=== PATIENT | female | born 1960 | race Caucasian/White ===

== ENCOUNTER → 2017-05-18 10:24 | Outpatient (CLI) | payer OTHER, SELFPAY ==
--- NOTE | 2017-05-18 10:26 | HPBI_ITS ---
MAMMOGRAPHY - BILATERAL SCREENING REASON FOR EXAM: Female, 57 years old. Routine annual screening examination. PERTINENT HISTORY: Grandmother with breast cancer. Remote right excisional breast biopsy. TECHNIQUE: Digital bilateral breast angel (3D mammographic acquisition) in the CC and MLO projections. 2-D mediolateral oblique (MLO) and craniocaudad (CC) views of both breasts were obtained. CAD: Full Field Digital Mammography with Computer Added Detection was performed. COMPARISON: Comparison is made with prior study dated February 26, 2016 and October 31, 2012. FINDINGS: Breast Composition: The breasts are heterogeneously dense, which may obscure small masses. There are no dominant masses or suspicious calcifications. No other significant abnormalities are identified. There has been no significant change since the prior study. HPBI/SCREENING MAMM (CAD), BILAT IMPRESSION: Stable bilateral screening mammogram. Yearly follow-up mammogram recommended. (A) ASSESSMENT CATEGORY: BIRADS Category 1: Negative. A letter regarding these results will be sent to the patient by the facility within 30 days. Approximately 10% of breast cancers are not detected by mammography. A normal mammogram should not delay biopsy of a clinically suspicious abnormality. [id number] Electronically Signed: Joshua Arguello MD at 13:13 EST Tel [phone], Service support ,
== END ==
PROVIDERS: Family Provider Family Medicine; PCP Family Medicine; Visit Provider Family Medicine
DX: Z12.31 Encounter for screening mammogram for malignant neoplasm of breast (principal)
CPT/HCPCS: 77063; 77067

== ENCOUNTER → 2017-12-29 17:28 | Outpatient (CLI) | payer SELFPAY, OTHER ==
--- NOTE | 2017-12-29 18:09 | MRI_ITS ---
STUDY: MRI BRAIN WITH AND WITHOUT CONTRAST REASON FOR EXAM: Female, 57 years old. Cardiomegaly. TECHNIQUE: Standardized multiplanar fat and water weighted pulse sequences were obtained. 8 ml of Gadavist contrast material was administered intravenously for the contrast portion of the examination. COMPARISON: None. FINDINGS: Normal size of the ventricles and extra-axial spaces for the patient's age. Normal white matter tracts of the supratentorial brain. Normal bilateral basal ganglia. Normal thalami. There is no extra-axial fluid accumulation. Normal flow voids within the major intracranial circulation suggesting patency by spin echo criteria. Normal venous enhancement. There is no enhancing intra-axial or extra-axial abnormality. Normal sella turcica, pituitary gland, infundibular stalk, optic chiasm and hypothalamus. Normal tectal plate and pineal gland. Normal midbrain, ignacio and medulla. Normal cerebellum. Normal basal cisterns. Normal bilateral temporal bones. Normal bilateral internal auditory canals. No demonstrated orbital abnormality, within the constraints of a routine brain study. Normal visualized paranasal sinuses. Normal calvarium and skull base. Normal visualized soft tissue structures. Normal visualized upper cervical spine. IMPRESSION: Normal unenhanced and enhanced MRI of the brain. Electronically Signed: Luis Diaz MD at 4:48 EDT Tel , Service support , STUDY: MRI ORBITS WITH AND WITHOUT CONTRAST REASON FOR EXAM: Female, 57 years old. visual disturbances rt eye TECHNIQUE: Standardized fat and water weighted pulse sequences were obtained in all 3 orthogonal planes, pre-and post contrast administration. ml of contrast material was administered intravenously for the contrast portion of the examination. COMPARISON: None. FINDINGS: Normal bilateral globes. Normal bilateral optic nerve sheath complexes and optic nerves. Normal bilateral intraconal and extraconal spaces. Normal bilateral extraocular muscles. Normal optic chiasm and post-chiasmatic tracts. Normal sella turcica, pituitary gland, infundibular stalk, and hypothalamus. Normal bilateral cavernous sinuses. Normal tectal plate and pineal gland. Normal flow voids within the major intracranial circulation suggesting patency by spin echo criteria. Normal size of the ventricles and extra-axial spaces for the patient's age. Normal white matter tracts of the supratentorial brain. Normal bilateral basal ganglia. Normal thalami. There is no extra-axial fluid accumulation. Normal midbrain, ignacio and medulla. Normal cerebellum. Normal basal cisterns. MRI/Brain W/WO Contrast IMPRESSION: Normal enhanced and unenhanced MRI of the orbits. Electronically Signed: Luis Diaz MD at 4:49 EDT Tel , Service support ,
== END ==
PROVIDERS: Family Provider Family Medicine; PCP Family Medicine; Visit Provider Ophthalmology
DX: R51 Headache (principal); H53.40 Unspecified visual field defects
CPT/HCPCS: 70553; A9585

== ENCOUNTER → 2018-04-18 14:38 | Outpatient (CLI) | payer OTHER, SELFPAY ==
[2018-04-18 15:43] LABS: Absolute Lymphocyte Count 1.58 X10^3/ul (0.83-4.51); Absolute Neutrophil Count 5.4 X10^3/uL (2.0-7.7); Basophil# 0.02 X10^3/uL; Basophil% 0.3 % (0-1); Eosinophil# 0.09 X10^3/uL; Eosinophils% 1.2 % (0-5); Hematocrit 42.9 % (37-47); Hemoglobin 14.3 g/dl (12.0-15.0); Lymphocyte # 1.58 X10^3/ul (4.0); Lymphocyte % 20.7 % (19-41); Mean Corp Hgb Conc 33.3 g/gl (32-36); Mean Corpuscular Hgb 29.6 pg (27.0-32.0); Mean Corpuscular Volume 88.8 fL (81-99); Mean Platelet Vol. 9.5 fl (6.2-12.0); Monocyte# 0.51 X10^3/uL; Monocyte% 6.7 % (0-10); Neutrophil # 5.41 X10^3/uL (2.7-7.7); Neutrophil % 70.8 % (47-70); Platelet Count 192 K/mm3 (150-450); RBC Distribution Width CV 12.7 % (11.6-14.6); RBC Distribution Width SD 40.9 fl (35.1-43.9); Red Blood Count 4.83 M/mm3 (4.2-5.4); White Blood Count 7.6 K/mm3 (4.4-11.0)
[2018-04-18 15:50] LABS: POSITIVE COUNT NO; POSITIVE DIFFERENTIAL NO; POSITIVE MORPHOLOGY NO
[2018-04-18 16:20] LABS: T3 Total - Triiodothyronine 0.95 ng/mL (0.6-1.81)
[2018-04-18 16:26] LABS: ALB/GLOB Ratio 1.2 RATIO (0.9-2.4); AST(SGOT) 12 U/L (15-37); Alanine Aminotransfer ALT/SGPT 24 U/L (13-56); Albumin, Serum 3.8 g/dL (3.2-5.0); Alkaline Phosphatase 76 U/L (45-117); Anion Gap 9 (5-15); BUN 12 mg/dL (7-18); BUN/Creat Ratio 17.1 RATIO (10-20); Calcium,Total 8.7 mg/dL (8.5-10.1); Chloride 103 mmol/L (98-107); EST Glomerular Filtration Rate 91 mL/min (>60); Est Glom Filt Rate - Afr Amer 111 mL/min (>60); Ferritin 120 ng/mL (8-252); Globulin 3.3 g/dL (2.2-4.2); Glucose 75 mg/dL (74-106); Potassium 3.6 mmol/L (3.5-5.1); Protein, Total 7.1 g/dL (6.4-8.2); Sodium Level 140 mmol/L (136-145); T4 Free Direct 0.83 ng/dL (0.76-1.46); Thyroid Stim Hormone (TSH) 2.07 uIU/mL (0.358-3.74)
[2018-04-20 11:32] LABS: Thyroid Peroxidase AB 11 IU/mL (0-34)
[2018-04-21 09:42] LABS: ANTINUCLEAR ANTIBODIES DIRECT Negative (Negative)
== END ==
PROVIDERS: Family Provider Family Medicine; PCP Family Medicine; Referring Provider Dermatology Pediatric Dermatology; Visit Provider Dermatology Pediatric Dermatology
DX: L64.8 Other androgenic alopecia (principal)
CPT/HCPCS: 36415; 80053; 82728; 84439; 84443; 84480; 85025; 86038; 86376

== ENCOUNTER → 2018-12-15 | Outpatient (CLI) | payer OTHER, SELFPAY ==
[2018-08-01 17:02] VITALS: BMI 30.6
[2018-12-15 15:26] LABS: Anion Gap 6 (5-15); BUN 16 mg/dL (7-18); Calcium,Total 8.7 mg/dL (8.5-10.1); Chloride 106 mmol/L (98-107); Cholesterol 168 mg/dL (200); Creatinine, Serum 0.76 mg/dL (0.55-1.02); EST Glomerular Filtration Rate 83 mL/min (>60); Est Glom Filt Rate - Afr Amer 100 mL/min (>60); Glucose 93 mg/dL (74-106); High Density Lipoprotein 55 mg/dL; Potassium 3.6 mmol/L (3.5-5.1); Sodium Level 142 mmol/L (136-145); Triglycerides 154 mg/dL; Very Low Density Lipoprotein 31 mg/dL (5-40)
[2018-12-15 15:31] LABS: Vitamin D,25 Hydroxy 36.3 ng/mL (29.95-100.01)
== END | disposition home or self-care (01) ==
LOC: MTLAB 13:10
PROVIDERS: Family Provider Family Medicine; PCP Family Medicine; Referring Provider Family Medicine; Visit Provider Family Medicine
DX: Z00.00 Encounter for general adult medical examination without abnormal findings (principal); E55.9 Vitamin D deficiency, unspecified
CPT/HCPCS: 36415; 80048; 80061; 82306

== ENCOUNTER 2019-01-06 10:30 | Outpatient (RCR) | payer OTHER, SELFPAY ==
[2018-08-01 17:02] VITALS: BMI 30.6
--- NOTE | 2018-12-16 09:14 | HP.PTEVAL_ITS ---
Patient's Visit Information ADAM PELAYO is a 58 year old F referred to Physical Therapy by Preston Miranda MD with a diagnosis of sinus Tarsitis of the Right foot.. Date of Evaluation: 12/16/18 Physical Therapist: CHELSY García - Visit Plan Frequency: 2x /Week Duration: 3 Weeks Plan: 2X/ week for 3 weeks for R ankle Stretching, foam rolling, strengthening, gait training, balance and proprioception with HEP - Subjective Findings: Pt has pain in the R ankle. 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 She was not having any problems for awhile and then started again for about 6 months and now 6-8 weeks ago it gives out when she is walking. Current symptoms: it is throbbing constantly, giving out, stabbing pain with sitting. Stairs: she feels the pain on stairs and has to be careful because of the giving out. She will go back in 4 weeks for a cortizone injection. He gave her a brace to wear 24-7 because of the giving out. - Pain R ankle pain Pain Intensity (Out of 10): 3 Pain Intensity Range: 6 - Objective Gait: Walks with slightly decrease stance time on the R foot. A lot of eversion on the R ankle with gait. R ankle girth measurements: medial to lateral 25.6cm, 51.2cm, 22.2 cm. L ankle 25, 50.5, 23. R ankle AROM:-6 degrees from neutral, 55 degrees PF, 6 degrees EV and 23 degrees Inversion. 5 DF degrees, 60 PF degrees, 23 INV degrees, and 6 degrees EVersion. R ankle MMT: 4- /5 DF and PF. EV 4-/5 and INV 4-/5. L ankle MMT 4/5 throught all 4 planes. R ankle SLS for 15 seconds and L ankle SLS x 23 seconds - Goals Goal 1:: I HEP Goal Time Frame: 2-4 Weeks Goal 2:: Increase R ankle DF to 5 degrees DF Goal Time Frame: 2-4 Weeks Goal 3:: Increase R ankle strength to 4/5 all 4 planes Goal Time Frame: 2-4 Weeks Goal 4:: Be able to sLB X 1 min while catching a ball without the leg giving out Goal Time Frame: 2-4 Weeks - Rehabilitation Potential Rehabilitation Potential: Good - Anticipated Interventions Patient/Client Instruction: Educate patient on: Condition, Plan of Care For the Purpose of:: To decrease pain, To decrease swelling/inflammation, To increase ROM, To improve nutrient delivery to tissue, To improve muscle performance and motor function, To improve ability to perform ADL's, To increase tolerance to activity/condition/position, To improve performance and independence with ADL's, To decrease level of supervision to perform tasks, To improve ability of physical actions for home/community/work/leisure, To improve gait and locomotor functions, To improve health of tissue, To decrease soft tissue restriction, To increase flexibility/ROM, To improve balance Therapeutic Exercise to Include: Strength training, Balance training, Flexibilty training, Gait and locomotor training, Neuromotor development, Passive ROM, Active ROM For the Purpose of:: To decrease pain, To decrease swelling/inflammation, To increase ROM, To improve nutrient delivery to tissue, To improve muscle performance and motor function, To improve ability to perform ADL's, To increase tolerance to activity/condition/position, To improve performance and independence with ADL's, To improve ability of physical actions for home/community/work/leisure, To improve gait and locomotor functions, To improve health of tissue, To decrease soft tissue restriction, To increase flexibility/ROM, To improve balance Functional Training to Include: Gait training For the Purpose of:: To improve gait and locomotor functions Manual Therapy Techniques to Include: Passive ROM For the Purpose of:: To increase ROM, To decrease soft tissue restriction, To increase flexibility/ROM Cryotherapy (ice pack, ice massage): Yes Thermo therapy (hot pack): Yes For the Purpose of:: To decrease pain, To improve nutrient delivery to tissue Thank you for the opportunity to evaluate your patient. For Medicare and Medicare HMO plans, please review the plan of care and approve it. It will need to be FAXED BACK to us at [phone] for Medicare purposes. For Medicare only, by signing this I certify the plan of care. Please let me know if there are questions or concerns regarding this plan of care. Physician Signature: Date:
--- NOTE | 2019-01-17 09:54 | HP.PTDCNRP_ITS ---
HP - Discharge Summary (1) - Patient Information ADAM PELAYO was seen in my office for initial evaluation on 12/16/18. The following Plan of Care was established for this patient: Initial Frequency: 2x /Week Initial Duration: 3 Weeks - Anticipated Interventions Patient/Client Instruction: Educate patient on: Condition, Plan of Care For the Purpose of:: To decrease pain, To decrease swelling/inflammation, To in crease ROM, To improve nutrient delivery to tissue, To improve muscle performance and motor function, To improve ability to perform ADL's, To increase tolerance to activity/condition/position, To improve performance and independence with ADL's, To decrease level of supervision to perform tasks, To improve ability of physical actions for home/community/work/leisure, To improve gait and locomotor functions, To improve health of tissue, To decrease soft tissue restriction, To increase flexibility/ROM, To improve balance Therapeutic Exercise to Include: Strength training, Balance training, Flexibilty training, Gait and locomotor training, Neuromotor development, Passive ROM, Active ROM For the Purpose of:: To decrease pain, To decrease swelling/inflammation, To increase ROM, To improve nutrient delivery to tissue, To improve muscle performance and motor function, To improve ability to perform ADL's, To increase tolerance to activity/condition/position, To improve performance and independence with ADL's, To improve ability of physical actions for home/community/work/leisure, To improve gait and locomotor functions, To improve health of tissue, To decrease soft tissue restriction, To increase flexibility/ROM, To improve balance Functional Training to Include: Gait training For the Purpose of:: To improve gait and locomotor functions Manual Therapy Techniques to Include: Passive ROM For the Purpose of:: To increase ROM, To decrease soft tissue restriction, To increase flexibility/ROM Cryotherapy (ice pack, ice massage): Yes Thermo therapy (hot pack): Yes For the Purpose of:: To decrease pain, To improve nutrient delivery to tissue This patient was last seen in our office 01/06/19. Pertinent comments regarding their Physical therapy will appear below: [facility] PT per At this point I will be discontinuing this patient from physical therapy. I would be happy to see this patient again in the future if found appropriate by the physician. Thank you! Princess Romo, MPT
== END 2019-01-06 19:00 | disposition home or self-care (01) ==
LOC: PT 10:30
PROVIDERS: Family Provider Family Medicine; PCP Family Medicine; Referring Provider Orthopaedic Surgery; Visit Provider Orthopaedic Surgery
DX: M25.571 Pain in right ankle and joints of right foot (principal)
CPT/HCPCS: 97110; 97162

== ENCOUNTER 2019-09-04 12:08 | Outpatient (RCR) | payer OTHER, SELFPAY ==
[2018-08-01 17:02] VITALS: BMI 30.6
--- NOTE | 2019-09-04 13:22 | HP.PTEVAL ---
Patient's Visit Information ADAM PELAYO is a 59 year old F referred to Physical Therapy by Dr. Preston Miranda MD with a diagnosis of R ankle instability. Date of Evaluation: 09/04/19 Physical Therapist: Delio Dodson DPT, OCS, CSCS - Visit Plan Frequency: 2x /Week Duration: 4 Weeks Plan: 2x/week for 4 weeks for. STM to R foot and ankle for swelling and ankle PROM. US non thermal to R anterior ankle. strengthening progressiona dn proprioception r ankle - Subjective Surgery 05/23 to stabilize ankle with tendon. End of June was out of boot and on steps and it popped adn hurt badly and swells up. Doctor thinks she popped the tendon loose. Wants her to try therapy. Has used brace for the last two months and been waiting but it is not improving. Swells every day and gets to 6/10 dailya t end of day. Sleep is not effected. Cannot walk on uneven surfaces in yard without boot. steps sdescending are painful. Dressing, bathroom, shower no problem. Not employed. Hobbies include walking adn [employer] bt not now due to ellis virus. - Pain R lateral ankle Pain Intensity (Out of 10): 1 Pain Intensity Range: 1, 7 - Objective R ankle swollen and sore today. Incisions fully healed and no signs of excessive redness or heat but swollen vs L. AROM R ankle DF 0, PF 55, inversion 20and eversion 10 but motor control inv/ev poor. PROM stretching adnterior ankle painful and gastroc tight. but 4 DF, 65 PF, 22 inv and 12 eversion. L ankle WFL. strength R ankle 3+ vs 4 on L all directions with slight discomfort all directions. 2/3 patella and achilles reflexes. Sensation LE WNL to gross light touch. Metatarsals moving well B as are toes with 5/5 big toe ext/flex strength. Walks with R antalgia, pes cavus R>L. Toe walking painful on R but able, heel walkign without pain. - Goals Goal 1:: Full AROM R ankle without pain. Goal Time Frame: 4-6 Weeks Goal 2:: R ankle feel 75% overall with pain 2/10 at worst. Goal Time Frame: 4-6 Weeks Goal 3:: Walk outside without pain on irregular surfaces. Goal Time Frame: 4-6 Weeks Goal 4:: Ia pprop HEP to minizie further probems. Goal Time Frame: 4-6 Weeks Goal 5:: 62/80 LEFS score Goal Time Frame: 2-4 Weeks - Rehabilitation Potential Physical Therapy Diagnosis: R ankle instability Rehabilitation Potential: Fair - Anticipated Interventions Patient/Client Instruction: Educate patient on: Condition, Plan of Care For the Purpose of:: To decrease pain, To increase ROM, To improve muscle performance and motor function, To increase tolerance to activity/condition/position, To improve ability of physical actions for home/community/work/leisure Therapeutic Exercise to Include: Strength training, Balance training, Flexibilty training, Gait and locomotor training, Passive ROM, Active ROM For the Purpose of:: To decrease pain, To improve muscle performance and motor function, To increase tolerance to activity/condition/position, To improve ability of physical actions for home/community/work/leisure Manual Therapy Techniques to Include: Petrissage, Mobilization, Passive ROM, Soft tissue mobilization For the Purpose of:: To decrease pain, To improve muscle performance and motor function, To increase tolerance to activity/condition/position, To improve ability of physical actions for home/community/work/leisure, To improve gait and locomotor functions Ultrasound (thermal/non thermal): Yes - nonthermal For the Purpose of:: To decrease swelling/inflammation Thank you for the opportunity to evaluate your patient. For Medicare and Medicare HMO plans, please review the plan of care and approve it. It will need to be FAXED BACK to us at [phone] for Medicare purposes. For Medicare only, by signing this I certify the plan of care. Please let me know if there are questions or concerns regarding this plan of care. Physician Signature: Date:
--- NOTE | 2019-09-08 13:15 | HP.PTDCSUM ---
It has been my pleasure to treat ADAM PELAYO referred by Dr. Preston Miranda MD, with the diagnosis of R ankle instability for a total of 1 visit(s). Discharge Date: Please see the following information for a summary of their discharge status. R lateral ankle Pain Intensity (Out of 10): 1 Goal 1:: Full AROM R ankle without pain. Goal 2:: R ankle feel 75% overall with pain 2/10 at worst. Goal 3:: Walk outside without pain on irregular surfaces. Goal 4:: Ia pprop HEP to minizie further probems. Goal 5:: 62/80 LEFS score Plan: Pt called and cancelled all appointments without reason. Will disocntinue at patient's request. If there are questions or concerns regarding this patient's physical therapy, please feel free to call me at [phone]. Thank you for the referral of this patient. Sincerely, Delio Dodson, DPT, OCS, CSCS
== END 2019-09-04 19:00 | disposition home or self-care (01) ==
LOC: PT 12:08
PROVIDERS: PCP Family Medicine; Referring Provider Orthopaedic Surgery; Visit Provider Orthopaedic Surgery
DX: M25.371 Other instability, right ankle (principal)
CPT/HCPCS: 97110; 97161

== ENCOUNTER 2020-06-21 14:22 | Outpatient (RCR) | payer OTHER, SELFPAY ==
[2018-08-01 17:02] VITALS: BMI 30.6
[2020-06-21] MEDS: COVID-19 VACC, MRNA(PFIZER)/PF 30 MCG/0.3 ML SYRINGE IM (13:12)
[2020-07-12] MEDS: COVID-19 VACC, MRNA(PFIZER)/PF 30 MCG/0.3 ML SYRINGE IM (13:02)
== END 2020-06-21 23:59 ==
LOC: IMMUN 14:22
PROVIDERS: PCP Family Medicine; Visit Provider Family Medicine
DX: Z23 Encounter for immunization (principal)
CPT/HCPCS: 0001A; 0002A; 91300

== ENCOUNTER → 2020-09-30 13:32 | Outpatient (CLI) | payer OTHER, SELFPAY ==
[2018-08-01 17:02] VITALS: BMI 30.6
--- NOTE | 2020-09-30 13:33 | EKG12_ITS ---
Test Reason : PRE-OP Blood Pressure : / mmHG Vent. Rate : 072 BPM Atrial Rate : 072 BPM P-R Int : 140 ms QRS Dur : 098 ms QT Int : 444 ms P-R-T Axes : 046 -13 -04 degrees QTc Int : 486 ms Normal sinus rhythm Prolonged QT Abnormal ECG Confirmed by MAURICE DESHPANDE, MANAV ([id number]), publication editor SUJATHA LEVY ([id number]) on 10/01/2020 8:40:11 AM Referred By: Ismael Marin Confirmed By:MANAV RICHARDS MD
[2020-09-30 13:56] LABS: Hematocrit 40.7 % (37-47); Hemoglobin 13.8 g/dL (12.0-15.0); Mean Corp Hgb Conc 33.9 g/dL (32-36); Mean Corpuscular Hgb 30.4 pg (27.0-32.0); Mean Corpuscular Volume 89.6 fL (81-99); Mean Platelet Vol. 8.5 fl (6.2-12.0); Platelet Count 209 K/mm3 (150-450); RBC Distribution Width CV 12.7 % (11.6-14.6); RBC Distribution Width SD 41.5 fl (35.1-43.9); Red Blood Count 4.54 M/mm3 (4.2-5.4); White Blood Count 7.3 K/mm3 (4.4-11.0)
[2020-09-30 14:14] LABS: Anion Gap 7 (5-15); BUN 15 mg/dL (7-18); BUN/Creat Ratio 17.6 RATIO (10-20); Calcium,Total 8.7 mg/dL (8.5-10.1); Chloride 101 mmol/L (98-107); Creatinine, Serum 0.85 mg/dL (0.55-1.02); EST Glomerular Filtration Rate 72 mL/min (>60); Est Glom Filt Rate - Afr Amer 87 mL/min (>60); Glucose 181 mg/dL (74-106); Potassium 3.5 mmol/L (3.5-5.1); Sodium Level 137 mmol/L (136-145)
== END ==
PROVIDERS: PCP Family Medicine; Referring Provider Physician Assistant; Visit Provider Physician Assistant
DX: Z01.818 Encounter for other preprocedural examination (principal)
CPT/HCPCS: 36415; 80048; 85027; 93005

== ENCOUNTER → 2020-11-23 | Outpatient (CLI) | payer OTHER, SELFPAY | END | disposition home or self-care (01) | LOC: EMPH 11-25 08:13 → LABSPEC 12-12 13:49 | PROVIDERS: PCP Family Medicine; Referring Provider Nurse Practitioner Family; Visit Provider Internal Medicine Infectious Disease | DX: U07.1 COVID-19 (principal) | CPT/HCPCS: 87635; U0005; U0003 ==

== ENCOUNTER → 2021-01-14 09:04 | Outpatient (CLI) | payer OTHER, SELFPAY ==
[2021-01-14 09:56] LABS: Hematocrit 38.1 % (37-47); Hemoglobin 13.2 g/dL (12.0-15.0); Mean Corp Hgb Conc 34.6 g/dL (32-36); Mean Corpuscular Volume 89.4 fL (81-99); Mean Platelet Vol. 8.8 fl (6.2-12.0); Platelet Count 200 K/mm3 (150-450); RBC Distribution Width CV 12.9 % (11.6-14.6); RBC Distribution Width SD 42.2 fl (35.1-43.9); Red Blood Count 4.26 M/mm3 (4.2-5.4); White Blood Count 5.6 K/mm3 (4.4-11.0)
[2021-01-14 10:09] LABS: Anion Gap 6 (5-15); BUN 18 mg/dL (7-18); BUN/Creat Ratio 24.7 RATIO (10-20); Calcium,Total 9.1 mg/dL (8.5-10.1); Chloride 105 mmol/L (98-107); Creatinine, Serum 0.73 mg/dL (0.55-1.02); EST Glomerular Filtration Rate 86 mL/min (>60); Est Glom Filt Rate - Afr Amer 105 mL/min (>60); Glucose 90 mg/dL (74-106); Potassium 3.9 mmol/L (3.5-5.1); Sodium Level 140 mmol/L (136-145)
== END ==
PROVIDERS: PCP Family Medicine; Referring Provider Physician Assistant; Visit Provider Physician Assistant
DX: Z01.818 Encounter for other preprocedural examination (principal)
CPT/HCPCS: 36415; 80048; 85027

== ENCOUNTER → 2021-01-27 11:56 | Outpatient (CLI) | payer OTHER, SELFPAY ==
--- NOTE | 2021-01-27 12:24 | EKG12_ITS ---
Test Reason : PRE OP Blood Pressure : / mmHG Vent. Rate : 067 BPM Atrial Rate : 067 BPM P-R Int : 132 ms QRS Dur : 086 ms QT Int : 448 ms P-R-T Axes : 045 -09 003 degrees QTc Int : 473 ms Normal sinus rhythm Normal ECG Confirmed by MAURICE DESHPANDE, MANAV ([id number]), editor trade journal SUJATHA LEVY ([id number]) on 01/28/2021 12:21:24 PM Referred By: Demetrio Sainz Confirmed By:MANAV RICHARDS MD
== END ==
PROVIDERS: PCP Family Medicine; Referring Provider Orthopaedic Surgery; Visit Provider Orthopaedic Surgery
DX: Z01.818 Encounter for other preprocedural examination (principal)
CPT/HCPCS: 93005

== ENCOUNTER 2021-03-31 07:09 | Day surgery (SDC) | payer OTHER, SELFPAY ==
--- NOTE | 2021-03-30 21:32 | HP.PCM_ITS ---
History and Physical Date of Admission: 03/31/21 HISTORY OF PRESENT ILLNESS 60 year old woman presents with a soft tissue mass right upper lip near abbe border that has increased in size over the last several months. This mass is in the vicinity of a birthmark that was removed about 28 years ago. She denies fever. She denies trauma. She denies recent infection. She denies bleeding. She presents at this time for further evaluation and treatment. PAST MEDICAL HISTORY Arthritis Breast lump in female Carpal tunnel syndrome Cataracts, bilateral Gall stones GERD (gastroesophageal reflux disease) Hay fever High cholesterol High triglycerides History of blood transfusion Hormone deficiency HTN (hypertension) IBS (irritable bowel syndrome) Kidney stones Mass of lip Pneumonia Severe headache UTI (urinary tract infection) Vision problems PAST SURGICAL HISTORY H/O resection of liver History of ankle surgery History of bunionectomy History of History of carpal tunnel release History of fundoplication History of hysterectomy History of rotator cuff surgery Hx of cholecystectomy Trigger finger ALLERGIES Sulfa (Sulfonamide Antibiotics) zolpidem [From Ambien] MEDICATIONS atenolol cranberry estradiol losartan-hydrochlorothiazide multivitamin simvastatin fluticasone propionate levofloxacin ascorbic acid (vitamin C) biotin cholecalciferol (vitamin D3) echinacea ruther[place] seal root vitamin A zinc FAMILY HISTORY Grandmother - Angina at rest, Breast cancer, Heart disease, CVA (cerebral vascular accident), Thyroid disorder Father - Depression, Diabetes, Hypertension, High cholesterol, CVA (cerebral vascular accident), Suicide attempt Mother - Heart disease, Seizures SOCIAL HISTORY Smoking Status: Never smoker alcohol intake: current details: Social substance use type: does not use REVIEW OF SYSTEMS General - Denies fever, fatigue, and weight loss. Eyes - Has cataracts. Denies glaucoma. ENT - Denies nasal congestion and sore throat. Endocrine - Denies excessive thirst and urination. Skin - Denies skin cancer. Has enlarging soft tissue mass right upper lip near abbe border. Musculoskeletal - Denies joint pain, joint stiffness, weakness of muscles and joints, back pain, and arthritis. Neuro - Denies headaches. Cardiovascular - Denies chest pain, fatigue, and shortness of breath with exertion. Psych - Denies anxiety and depression. Has claustrophobia. Respiratory - Denies chronic cough and shortness of breath. Gastrointestinal - Denies nausea, vomiting, diarrhea, and constipation. Hematologic - Denies abnormal bruising and bleeding. Genitourinary - Denies hematuria and urinary frequency. PHYSICAL EXAMINATION General - Alert and Oriented. HEENT - PERRL. EOMI. Throat is clear. On the right upper lip near the abbe border is a soft tissue mass that measures 1.5 cm. It is located in the vicinity of a scar that was the result of a birthmark removed 28 years ago. It is parallel and medial to the melolabial fold. No distortion noted on the right upper lip. She smiles symmetrically. The mass is easily palpable intraorally. No suspicious lesions noted. Neck - Supple and nontender. No cervical adenopathy. No suspicious lesions noted. Lungs - Clear to auscultation. Heart - Regular rate and rhythm. Abdomen - Soft and nondistended. Extremities - FROM. No axillary adenopathy. Radial pulses are palpable. No suspicious lesions noted. Neuro - CN II-XII grossly intact. Psych - Normal mood and affect. ASSESSMENT 1.5 cm soft tissue mass right upper lip near abbe border. PLAN Patient has an enlarging soft tissue mass right upper lip near abbe border. It is located in the vicinity of a scar that was the result of a birthmark removed 28 years ago. Clinically the mass is consistent with a lipoma versus a mucous cyst. Recommend excision of this soft tissue mass right upper lip near abbe border. May be able to get access to the mass from an intraoral approach. If there are difficulties, can always go through the previous scar to get exposure for removal. The mass will be sent to Pathology for analysis to rule out carcinoma. After removal, if there are some lip distortion or soft tissue indentation, then advancement skin flap may be necessary to improve that. Surgery will be done under local anesthesia and IV sedation on an outpatient basis. Patient was informed of the risks and complications of the procedure including alternatives to surgery. These were discussed with the patient personally. Patient voices understanding and wishes to proceed. Some of the risks and complications were included in a form from the [place] [employer]. We discussed the current risks associated with COVID-19. While it is understood that there is a community spread of COVID-19, the risk of rupa COVID-19 while at [facility] ([facility]) is very low; however, the risk cannot be completely mitigated because of the community spread of the disease. We discussed in detail the risk of exposure to and/or potential harm posed by the COVID-19 virus with having a surgery/procedure at this time versus the risk of delaying the surgery/procedure. It is not possible to know either the risk of delaying the surgery or procedure or chance of getting an infection with perfect accuracy, but a joint decision was made to proceed at this time with the scheduled surgery/procedure as indicated on the consent form. Patient was notified that we will need to comply with any screening or testing WC wishes to perform or that surgery may be delayed for any positive results. Procedure Criteria Procedure Type: Elective COVID Risk Discussion: The surgeon/proceduralist and patient have discussed in detail the risk of exposure to and/or potential harm posed by the COVID-19 virus with having a surgery/procedure at this time versus the risk of delaying the surgery/procedure. It is not possible to know either the risk of delaying the surgery or procedure or chance of getting an infection with perfect accuracy, but a joint decision was made between the patient and the surgeon/proceduralist to proceed at this time with the scheduled surgery/procedure as indicated on the consent form.
[2021-03-31] VITALS (7 sets, daily range): BP systolic 106–132; BP diastolic 54–74; PULSE 56–61; RESP 16–18; TEMP 35.9–37.1; O2SAT 95–98; BMI 35.2
[2021-03-31] MEDS: Lactated Ringers 1,000 ML 15 ML IV ×2 (07:36→10:01)
--- NOTE | 2021-03-31 08:40 | MASS_PTH ---
PATIENT: ADAM PELAYO LOC: [facility] U#:[id number] AGE/SX: 60/F ROOM: RE03/31/[address]: Dr. Gregor Guzmán MD : 1960 BED: DIS: 03/31/2021 SPEC #: [id number] RECD: 03/31/21 11:13 STATUS: DAIJA REBianca #: [id number] BERNICE: 03/31/21 08:[address]: Gregor Guzmán DEPT: SURGICAL PATHOLOGY RECD BY: Fatoumata Abraham ENTERED: 03/31/21 11:26 SP TYPE: Mass OTHR DR: Dr. Jeffery Dick MD Tissues: Face, NOS Procedures: Surgery Specimen Level III HEADER OPERATION: Excision soft tissue mass upper lip abbe border PRE-OP DIAGNOSIS: Soft tissue mass right upper lip TISSUE SUBMITTED: Soft tissue mass right upper lip MICROSCOPIC DIAGNOSIS Soft tissue mass right upper lip, excision: Fragments of squamous mucosa, skeletal muscle tissue, fibroconnective tissue and keratinous material, suggestive of epidermal inclusion cyst. ELLIE:susan 04/01/2021 MICROSCOPIC DESCRIPTION Slides are reviewed. GROSS DESCRIPTION Received in fixative is one container labeled with the patient's name and designated soft tissue mass right upper lip. The specimen consists of multiple pieces of pink-red soft tissue that in aggregate measure 2 x 0.8 x 0.3 cm. The specimen is totally submitted in one cassette. / ELLIE:susan 03/31/21 TC:5 [facility]: [id number]
[2021-03-31] MEDS: Lidocaine 1% /Epi 1:100 (20ml) 20 ML Vial (09:25)
[2021-03-31] MEDS: Mupirocin Ointment 22gm Tube 1 APPLIC (10:12)
--- NOTE | 2021-03-31 10:24 | PCM.OPRPT ---
Problems Associated Problem List Diagnoses (1) Mass of lip: Report of Operation Date of Procedure: 03/31/21 Pre-Operative Diagnosis: 1.5 cm soft tissue mass right upper lip near abbe border. Post-Operative Diagnosis: 1.5 cm submuscular soft tissue mass right upper lip near abbe border. Surgery/Procedure Performed:: Excision 1.5 cm submuscular soft tissue mass right upper lip near abbe border with 1.5 cm complex closure. Description of Surgical Findings:: 60 year old woman presents with a soft tissue mass right upper lip near abbe border that has increased in size over the last several months. This mass is in the vicinity of a birthmark that was removed about 28 years ago. She denies fever. She denies trauma. She denies recent infection. She denies bleeding. Patient was informed of the risks and complications of the procedure including alternatives to surgery. These were discussed with the patient personally. Patient voices understanding and wishes to proceed. Some of the risks and complications were included in a form from the [employer]. Surgeon: Gregor Guzmán senior analyst market intelligence: None Type of Anesthesia: Local MAC (xylocaine with epinephrine intra-oral block and IV sedation.) Specimen's removed: Submuscular soft tissue mass right upper lip near abbe border to Pathology. Drains: None. Estimated Blood Loss (mL): 10. Description of Procedure: Patient was taken to OR in supine position and was given IV sedation. The face was prepped and draped in the usual fashion. SCD's were placed for DVT prophylaxis. Perioperative antibiotics were given intravenously. The soft tissue mass right upper lip near abbe border was infiltrated with xylocaine and epinephrine as an intra-oral block. After waiting 5 minutes for the anesthetic to take effect, I put some traction sutures in the upper lip to get exposure for an intra-oral approach to this soft tissue mass. When I pressed on the mass from the skin side, it felt as though the mass was closer to the skin as opposed to the intra-oral mucosa. Since she already had a scar there from excision of a hemangioma as a child, I made an oblique incision through the central aspect of the scar at the level of the palpable soft tissue mass. The soft tissue mass was submuscular. I gently the muscle and the soft tissue mass was excised. The soft tissue mass was adherent to some of the muscle. Some of the muscle was excised with the soft tissue mass. Some of the surrounding scar tissue from the previous excision of the hemangioma was also excised. The mass was sent to Pathology for analysis to rule out carcinoma. The soft tissue mass appeared cystic in nature, but the most common ones are subcutaneous. This one was submuscular. The remaining muscle was soft and in continuity. Hemostasis was obtained with electrocautery. I closed the wound in a multiple layered fashion with 4-0 Monocryl figure of eight interrupted sutures for the underlying muscle layer. The deep dermis and subcutaneous tissue were approximated with 5-0 Monocryl interrupted sutures. The skin was approximated with 6-0 Prolene simple interrupted and vertical mattress interrupted sutures. Steri-strips were applied followed by antibiotic ointment. Good contour of the upper lip was noted. Patient tolerated the procedure well and was sent to PACU in satisfactory condition. Patient will be sent home on antibiotics and pain medication. She will keep her head elevated during the initial postoperative period. Patient will followup in a week for a wound check and for discussion of the pathology report and for removal of the sutures. Grafts/Implants Used: None. Complications None. Admit VTE Documentation VTE Present on Admission: No VTE Mechan Device Prophylaxis: SCD's VTE Pharm Prophylaxis ordered?: No Addendum Addendum: Surgery Charges CPT - 15136 ICD-10 - K13.0 12434 K13.0
--- NOTE | 2021-03-31 10:26 | PCM.DC ---
Discharge Instructions Diet Discharge Diet: No restrictions Activity Discharge Activity: May Drive (while taking pain medication.), May Shower (in two days.) and - (no heavy lifting. keep head elevated.) May shower in (days): 2 May resume sexual activity in: 10-14 days Ice area for (Minutes): 5 (as needed for facial swelling.) Weight Bearing Status: Weight bearing as tolerated Lifting Restrictions: 20 lbs. Keep extremity elevated above heart level: - (keep head elevated.) Dressing / Incision Call your doctor if your incision/area has: Continuous Slow Oozing, Sudden Increased Bleeding, Increased Pain/ Swelling, Increased Redness, Foul Smelling Discharge and Swelling at the incision site Call your doctor if you observe: Fever of 101 or Higher, Coldness, Increased Pain, Shortness of breath, Chest pain, Calf discomfort and Uncontrolled pain Remove Dressing in: leave until fall off (may remove the steri-strips when they become loose.) Cleanse incision/area with: - (may get incision wet in the shower in two days.) Follow Up Care Please Follow Up With: Gregor Guzmán MD When: one week. call [phone] for appt. Test Results: Test results from this visit will be discussed in further detail at your follow-up appointment, if applicable. Discharge Plan Admission Primary Reason for Your Visit: excision submuscular mass right upper lip near the abbe border. Attending Provider: Gregor Guzmán Primary Care Provider: Jeffery Dick Discharge Orders/Prescriptions Prescriptions: New clindamycin HCl [Cleocin HCl] 300 mg capsule 300 mg PO TID Qty: 15 RF: 0 L.acidoph,saliva-B.bif-S.therm [Acidophilus Probiotic Blend] 175 mg capsule 1 cap PO DAILY Qty: 10 RF: 0 oxycodone-acetaminophen [Percocet] 5-325 mg tablet 1 tab PO Q6H PRN (Reason: pain (scale score 7-10)) 7 Days Qty: 28 RF: 0 Continued simvastatin 40 mg tablet 40 mg PO DAILY 90 Days Qty: 90 RF: 0 atenolol 50 mg tablet 50 mg PO QHS 90 Days Qty: 90 RF: 0 estradiol 0.1 mg/24 hr patch weekly 1 patch transdermal HICKEY 84 Days Qty: 12 RF: 0 losartan-hydrochlorothiazide 100-12.5 mg tablet 1 tab PO DAILY 90 Days Qty: 90 RF: 0 multivitamin capsule capsule 1 cap PO DAILY RF: 0 cranberry 400 mg capsule 400 mg PO DAILY RF: 0 biotin 10,000 mcg capsule 10,000 mcg PO DAILY RF: 0 cholecalciferol (vitamin D3) [Vitamin D3] 50 mcg (2,000 unit) capsule 50 mcg PO DAILY RF: 0 ascorbic acid (vitamin C) [Vitamin C] 1,000 mg tablet 1 g PO DAILY RF: 0 vitamin A 2,400 mcg capsule 2,400 mcg PO DAILY RF: 0 zinc 50 mg tablet 50 mg PO DAILY RF: 0 echinacea 450 mg capsule 900 mg PO DAILY RF: 0 rutherford seal root 600 mg capsule 600 mg PO DAILY RF: 0 Referrals / Follow Up: Jeffery Dick MD [Primary Care Provider] - Disposition Disposition (needs filled in before D/C Order can be placed): Home, Self Care
== END 2021-03-31 11:26 | disposition home or self-care (01) ==
LOC: SDC 07:10 → AC 07:11
PROVIDERS: PCP Family Medicine; Referring Provider Surgery; Visit Provider Surgery
PROC: (CPT 21013; principal; 2021-03-31 08:25)
DX: K13.0 Diseases of lips (principal); E78.00 Pure hypercholesterolemia, unspecified; I10 Essential (primary) hypertension; K21.9 Gastro-esophageal reflux disease without esophagitis; K58.9 Irritable bowel syndrome, unspecified; M19.90 Unspecified osteoarthritis, unspecified site; Z79.899 Other long term (current) drug therapy; Z87.440 Personal history of urinary (tract) infections; Z87.442 Personal history of urinary calculi; Z90.49 Acquired absence of other specified parts of digestive tract; Z90.710 Acquired absence of both cervix and uterus
CPT/HCPCS: 21013; 88304; 88305; J7120

== ENCOUNTER → 2021-08-08 | Outpatient (CLI) | payer BC, SELFPAY ==
--- NOTE | 2021-08-08 09:37 | EKG12_ITS ---
Test Reason : PRE-OP Blood Pressure : / mmHG Vent. Rate : 061 BPM Atrial Rate : 061 BPM P-R Int : 132 ms QRS Dur : 092 ms QT Int : 444 ms P-R-T Axes : 020 -20 -13 degrees QTc Int : 446 ms Normal sinus rhythm Normal ECG Confirmed by MAURICE DESHPANDE, MANAV ([id number]), editorial intern SUJATHA LEVY ([id number]) on 08/08/2021 12:22:50 PM Referred By: EVANS BREWSTER Confirmed By:MAANV RICHARDS MD
[2021-08-08 10:04] LABS: Anion Gap 6 (5-15); BUN 18 mg/dL (7-18); BUN/Creat Ratio 22.2 RATIO (10-20); Calcium,Total 8.9 mg/dL (8.5-10.1); Chloride 107 mmol/L (98-107); Creatinine, Serum 0.81 mg/dL (0.55-1.02); EST Glomerular Filtration Rate 76 mL/min (>60); Est Glom Filt Rate - Afr Amer 92 mL/min (>60); Glucose 91 mg/dL (74-106); Potassium 3.9 mmol/L (3.5-5.1); Sodium Level 139 mmol/L (136-145)
== END | disposition home or self-care (01) ==
LOC: PSN 09:34
PROVIDERS: PCP Family Medicine
DX: M76.62 Achilles tendinitis, left leg (principal); I10 Essential (primary) hypertension; E78.00 Pure hypercholesterolemia, unspecified
CPT/HCPCS: 36415; 80048; 93005

== ENCOUNTER → 2022-02-17 | Outpatient (CLI) | payer BC, SELFPAY ==
--- NOTE | 2022-02-17 10:55 | RAD_ITS ---
STUDY: X-RAY CHEST REASON FOR EXAM: Female, 61 years old. Cough. TECHNIQUE: Frontal and lateral views of the chest. COMPARISON: None. FINDINGS: The lungs are clear and expanded. There is no demonstrated pleural abnormality. Normal size heart. Normal mediastinum and garrett. Normal visualized pulmonary arteries. Aortic tortuosity. Normal visualized thoracic spine. Normal visualized ribs, clavicles, and shoulders. Cholecystectomy clips. RAD/Chest PA and Lateral IMPRESSION: Aortic tortuosity. No active or acute cardiopulmonary disease. Electronically Signed: Ismael Angelo, at 11:21 EST ,
== END | disposition home or self-care (01) ==
LOC: MTRAD 10:54
PROVIDERS: PCP Family Medicine; Referring Provider Otolaryngology Otolaryngology/Facial Plastic Surgery; Visit Provider Otolaryngology Otolaryngology/Facial Plastic Surgery
DX: R05.9 Cough, unspecified (principal)
CPT/HCPCS: 71046

== ENCOUNTER → 2022-04-15 | Outpatient (CLI) | payer OTHER, SELFPAY ==
[2022-04-15 10:14] LABS: Absolute Neutrophil Count 4.6 X10^3/uL (2.0-7.7); Basophil# 0.03 X10^3/uL; Basophil% 0.4 % (0-1); Eosinophil# 0.09 X10^3/uL; Eosinophils% 1.3 % (0-5); Hematocrit 40.1 % (37-47); Hemoglobin 14.1 g/dL (12.0-15.0); Lymphocyte % 22.4 % (19-41); Mean Corp Hgb Conc 35.2 g/dL (32-36); Mean Corpuscular Hgb 31.1 pg (27.0-32.0); Mean Corpuscular Volume 88.5 fL (81-99); Mean Platelet Vol. 8.3 fl (6.2-12.0); Monocyte# 0.49 X10^3/uL; Monocyte% 7.3 % (0-10); NRBC Flagged by Analyzer 0 % (0-5); Neutrophil # 4.59 X10^3/uL (2.7-7.7); Neutrophil % 68.5 % (47-70); Platelet Count 215 K/mm3 (150-450); RBC Distribution Width CV 12.6 % (11.6-14.6); RBC Distribution Width SD 40.6 fl (35.1-43.9); Red Blood Count 4.53 M/mm3 (4.2-5.4); White Blood Count 6.7 K/mm3 (4.4-11.0)
[2022-04-15 10:58] LABS: AST(SGOT) 12 U/L (15-37); Alanine Aminotransfer ALT/SGPT 22 U/L (13-56); Albumin, Serum 3.6 g/dL (3.2-5.0); Alkaline Phosphatase 103 U/L (45-117); Anion Gap 7 (5-15); BUN 13 mg/dL (7-18); BUN/Creat Ratio 19.8 RATIO (10-20); Calcium,Total 9.3 mg/dL (8.5-10.1); Chloride 103 mmol/L (98-107); Cholesterol 214 mg/dL (200); Creatinine, Serum 0.66 mg/dL (0.55-1.02); EST Glomerular Filtration Rate 97 mL/min (>60); Est Glom Filt Rate - Afr Amer 118 mL/min (>60); Globulin 3.7 g/dL (2.2-4.2); Glucose 89 mg/dL (74-106); High Density Lipoprotein 51 mg/dL; Protein, Total 7.3 g/dL (6.4-8.2); Sodium Level 138 mmol/L (136-145); Triglycerides 592 mg/dL
[2022-04-15 12:49] LABS: Vitamin D,25 Hydroxy 50.6 ng/mL
== END | disposition home or self-care (01) ==
LOC: LAB 10:01
PROVIDERS: PCP Family Medicine; Visit Provider Internal Medicine
DX: Z00.00 Encounter for general adult medical examination without abnormal findings (principal); E55.9 Vitamin D deficiency, unspecified
CPT/HCPCS: 36415; 80053; 80061; 82306; 85025

== ENCOUNTER → 2022-04-23 | Outpatient (CLI) | payer OTHER, SELFPAY ==
--- NOTE | 2022-04-23 15:35 | BD_ITS ---
STUDY: DUAL ENERGY X-RAY ABSORPTIOMETRY / DXA REASON FOR EXAM: Female, 62 years old. Post Menopausal TECHNIQUE: Bone Mineral Density (BMD) measurements of lumbar spine and bilateral hips were obtained. COMPARISON: None. FINDINGS: Lumbar Spine (L1-L4): g/cm2 (1.071) / T-score (0.2) / Z-score (1.8) Findings are suggestive of normal bone density with a low fracture risk. Left Femur Total: g/cm2 (0.986) / T-score (0.4) / Z-score (1.4) Left Femoral Neck: g/cm2 (0.868) / T-score (0.2) / Z-score (1.5) Right Femur Total: g/cm2 (0.951) / T-score (0.1) / Z-score (1.1) Right Femoral Neck: g/cm2 (0.819) / T-score (-0.3) / Z-score (1.1) BD/Dexa Bone Density Study IMPRESSION: The patient is considered normal as outlined below according to World Toni Organization (WHO) criteria with a low fracture risk. Reference Information: The T-score is the number of standard deviations above or below the standard which is normal for young adults at their peak bone mineral density. The World Health Organization (WHO) interprets the T-scores as follows: Above -1 Normal bone density Between -1 and -2.5 Osteopenia Equal to / or below -2.5 Osteoporosis As a practical clinical guideline, osteopenia may be graded as follows: Mild -1 through -1.5 Moderate -1.6 through -2.0 Severe -2.1 through -2.4 The Z-score is the number of standard deviations above or below age-matched controls. A Z-score of less than -1.5 would be considered abnormal. References: 1. NIH Osteoporosis and Related Bone Diseases www osteo.org 2. International Society for Clinical Densitometry www iscd.org 3. National Osteoporosis Foundation www nof.org Electronically Signed: Joshua Arguello MD at 13:22 EST ,
--- NOTE | 2022-04-23 15:35 | BI_ITS ---
MAMMOGRAPHY - BILATERAL SCREENING REASON FOR EXAM: Female, 62 years old. Routine annual screening examination. PERTINENT HISTORY: Grandmother with breast cancer. Remote left excisional breast biopsy. TECHNIQUE: Digital bilateral breast murphy (3D mammographic acquisition) in the CC and MLO projections. 2-D mediolateral oblique (MLO) and craniocaudad (CC) views of both breasts were obtained. CAD: Full Field Digital Mammography with Computer Added Detection was performed. COMPARISON: Comparison is made with prior study dated 05/18/2017 and 02/26/2016. FINDINGS: Breast Composition: The breasts are heterogeneously dense, which may obscure small masses. There are no dominant masses or suspicious calcifications. Stable benign-appearing bilateral axillary lymph nodes. No other significant abnormalities are identified. There has been no significant change since the prior study. BI/SCRN MAMM (CAD)W/MURPHY BILAT IMPRESSION: Stable bilateral screening mammogram. Yearly follow-up mammogram recommended. (A) ASSESSMENT CATEGORY: BIRADS Category 2: Benign. A letter regarding these results will be sent to the patient by the facility within 30 days. Approximately 10% of breast cancers are not detected by mammography. A normal mammogram should not delay biopsy of a clinically suspicious abnormality. [id number] Electronically Signed: Joshua Arguello MD at 8:38 EST ,
== END | disposition home or self-care (01) ==
LOC: OPBD 15:29
PROVIDERS: PCP Family Medicine; Visit Provider Internal Medicine
DX: Z12.31 Encounter for screening mammogram for malignant neoplasm of breast (principal); Z78.0 Asymptomatic menopausal state
CPT/HCPCS: 77063; 77067; 77080

== ENCOUNTER → 2022-06-01 | Outpatient (CLI) | payer OTHER, SELFPAY ==
[2022-06-01 16:44] LABS: Anion Gap 6 (5-15); BUN 18 mg/dL (7-18); BUN/Creat Ratio 18.8 RATIO (10-20); Chloride 104 mmol/L (98-107); Creatinine, Serum 0.96 mg/dL (0.55-1.02); EST Glomerular Filtration Rate 63 mL/min (>60); Est Glom Filt Rate - Afr Amer 76 mL/min (>60); Glucose 94 mg/dL (74-106); Potassium 3.5 mmol/L (3.5-5.1); Sodium Level 138 mmol/L (136-145)
== END | disposition home or self-care (01) ==
LOC: BIMLAB 13:26
PROVIDERS: PCP Family Medicine
DX: I10 Essential (primary) hypertension (principal); E78.00 Pure hypercholesterolemia, unspecified; M76.62 Achilles tendinitis, left leg
CPT/HCPCS: 36415; 80048

== ENCOUNTER → 2022-07-07 | Outpatient (CLI) | payer OTHER, SELFPAY ==
[2022-07-07 12:58] LABS: Cholesterol 202 mg/dL (200); High Density Lipoprotein 45 mg/dL; Triglycerides 284 mg/dL; Very Low Density Lipoprotein 57 mg/dL (5-40)
== END | disposition home or self-care (01) ==
LOC: MTLAB 10:18
PROVIDERS: PCP Internal Medicine; Referring Provider Internal Medicine; Visit Provider Internal Medicine
DX: E78.5 Hyperlipidemia, unspecified (principal)
CPT/HCPCS: 36415; 80061

== ENCOUNTER → 2022-11-30 | Outpatient (CLI) | payer OTHER, SELFPAY ==
[2022-11-30 18:41] LABS: ALB/GLOB Ratio 1.1 RATIO (0.9-2.4); AST(SGOT) 11 U/L (15-37); Alanine Aminotransfer ALT/SGPT 20 U/L (13-56); Albumin, Serum 3.6 g/dL (3.2-5.0); Alkaline Phosphatase 69 U/L (45-117); Anion Gap 7 (5-15); BUN 16 mg/dL (7-18); BUN/Creat Ratio 17.8 RATIO (10-20); Calcium,Total 8.5 mg/dL (8.5-10.1); Chloride 107 mmol/L (98-107); Cholesterol 177 mg/dL (200); EST Glomerular Filtration Rate 67 mL/min (>60); Est Glom Filt Rate - Afr Amer 81 mL/min (>60); Globulin 3.2 g/dL (2.2-4.2); Glucose 100 mg/dL (74-106); High Density Lipoprotein 39 mg/dL; Potassium 3.5 mmol/L (3.5-5.1); Protein, Total 6.8 g/dL (6.4-8.2); Sodium Level 140 mmol/L (136-145); Triglycerides 375 mg/dL; Very Low Density Lipoprotein 75 mg/dL (5-40)
== END | disposition home or self-care (01) ==
LOC: MTLAB 15:17
PROVIDERS: PCP Internal Medicine; Referring Provider Internal Medicine; Visit Provider Internal Medicine
DX: E78.5 Hyperlipidemia, unspecified (principal)
CPT/HCPCS: 36415; 80053; 80061

== ENCOUNTER → 2022-12-10 | Outpatient (CLI) | payer OTHER, SELFPAY | END | disposition home or self-care (01) | LOC: LABSPEC 15:23 | PROVIDERS: PCP Internal Medicine; Referring Provider Otolaryngology Otolaryngology/Facial Plastic Surgery; Visit Provider Otolaryngology Otolaryngology/Facial Plastic Surgery | DX: J02.9 Acute pharyngitis, unspecified (principal) | CPT/HCPCS: 87070 ==

== ENCOUNTER → 2023-03-01 | Outpatient (CLI) | payer OTHER, SELFPAY ==
[2023-03-01 15:50] LABS: Anion Gap 5 (5-15); BUN 16 mg/dL (7-18); BUN/Creat Ratio 18.5 RATIO (10-20); Calcium,Total 8.7 mg/dL (8.5-10.1); Chloride 106 mmol/L (98-107); Cholesterol 219 mg/dL (200); Creatinine, Serum 0.86 mg/dL (0.55-1.02); EST Glomerular Filtration Rate 70 mL/min (>60); Est Glom Filt Rate - Afr Amer 85 mL/min (>60); Glucose 109 mg/dL (74-106); High Density Lipoprotein 42 mg/dL; Potassium 3.9 mmol/L (3.5-5.1); Sodium Level 138 mmol/L (136-145); Triglycerides 433 mg/dL
== END | disposition home or self-care (01) ==
LOC: MTLAB 13:12
PROVIDERS: PCP Internal Medicine; Referring Provider Internal Medicine; Visit Provider Internal Medicine
DX: E78.5 Hyperlipidemia, unspecified (principal)
CPT/HCPCS: 36415; 80048; 80061

== ENCOUNTER → 2023-04-16 | Outpatient (CLI) | payer OTHER, SELFPAY ==
--- OUTSIDE RECORDS SUMMARY | 2023-04-16 11:37 | XMS RPT_ITS | CCD ---
Author Name Unknown Address [id number] [place] [address] Organization [facility] Care Team Providers Care Rubber Down Name Role Phone Nicole BORRERO, Иван Eubanks Unavailable [phone] Gisele DESHPANDE, Breanna Sherwood Primary Care Provider EMILIANO DESHPANDE, DR BRIDGET Gil Primary Care Physician [phone] ELIEZER DESHPANDE, DR KUMAR Attending Unavailniranjan e EMILIANO DESHPANDE, DR BRIDGET Gil Primary Care Unavailabl e Allergies Allergy Classification Reported Allergen(s) Allergy Type Date of Onset Reaction(s) Facility Sulfonamides (antibiotic) (1 source) Sulfonamides (Antibiotic) Drug Allergy 4 Rash [facility] (2 sources) sulfamethoxazole / trimethoprim Drug Allergy 7 rapid heartbeat/rash [facility] Work Phone: (2 sources) zolpidem Drug Allergy 7 [facility] Work Phone: (1 source) Sulfamethoxazole; Translations: [sulfamethoxazole] Drug Allergy [facility] Medications Current Medications Medication Drug Class(es) Dates Sig (Normalized) Sig (Original) esomeprazole 40 mg delayed release oral capsule (1 source) Proton Pump Inhibitor Start: 04-13-2015 esomeprazole 40 mg oral delayed release capsule (NF) Dose : 40 mg = 1 cap(s), Oral, BIDAC Start Date: 04/13/15 Status: Ordered Estradiol Patch 0.1 mg/24 hours twice weekly transdermal film, extended release (1 source) Start: 04-13-2015 Estradiol Patch 0.1 mg/24 hours twice weekly transdermal film, extended release Dose = 1 patch(es), Topical, q7day Start Date: 04/13/15 Status: Ordered hydroCHLOROthiazide 12.5 mg / losartan potassium 100 mg oral tablet (2 sources) Thiazide Diuretic, Angiotensin 2 Receptor Nuris Start: 04-13-2015 take 1 tablet by mouth once daily hydrochlorothiazi de-losartan 12.5-100 mg oral tablet Dose = 1 tab(s), Oral, Daily Start Date: 04/13/15 Status: Ordered Completed/Discontinued Medications Medication Drug Class(es) Dates Sig (Normalized) Sig (Original) acetaminophen 300 mg / HYDROcodone bitartrate 5 mg oral tablet (1 source) Opioid Agonist HYDROcodone-Acet aminop hen (VICODIN) 5-300 mg tab Take by mouth as needed. 0 Active Problems Active Problems Problem Classification Problem Date Documented Date Episodic/Chronic Complications of surgical procedures or medical care (1 source) Menopausal symptom; Translations: [Symptomatic postprocedural ovarian failure] 10-02-2014 Chronic Disorders of lipid metabolism (2 sources) Hypercholesterolemia; Translations: [Pure hypercholesterolemia, unspecified] Onset: 02-19-2014 02-19-2014 Chronic Esophageal disorders (3 sources) Gastroesophageal reflux disease; Translations: [Gastro-esophageal reflux disease without esophagitis] Onset: 04-01-2023 04-13-2015 Chronic Essential hypertension (2 sources) Hypertensive disorder; Translations: [Essential (primary) hypertension] Onset: 02-19-2014 02-19-2014 Chronic Genitourinary symptoms and ill-defined conditions (1 source) Incontinence; Translations: [Mixed incontinence] 10-08-2014 Chronic Spondylosis; intervertebral disc disorders; other back problems (1 source) Arthritis of spine 04-13-2015 Chronic Unclassified (1 source) Sweating; Translations: [Sweating] 10-08-2014 Unclassified (1 source) Cough, unspecified; Translations: [Cough, unspecified] Onset: 04-01-2023 Past or Other Problems Problem Classification Problem Date Documented Da te Episodic/Chronic Other and unspecified benign neoplasm (1 source) Hemangioma of liver; Translations: [Hemangioma of intra-abdominal structures] Onset: 01-24-2014 01-24-2014 Episodic Other lower respiratory disease (2 sources) Cough; Translations: [Cough] Onset: 02-28-2017 02-28-2017 Episodic Other screening for suspected conditions (not mental disorders or infectious disease) (1 source) Breast neoplasm screening status; Translations: [Encounter for screening mammogram for malignant neoplasm of breast] Onset: 10-02-2014 10-02-2014 Episodic Other upper respiratory infections (2 sources) Acute maxillary sinusitis; Translations: [Acute maxillary sinusitis, unspecified] Onset: 02-28-2017 02-28-2017 Episodic Unclassified (1 source) Cough, unspecified; Translations: [Cough, unspecified] Onset: 04-01-2023 Results Test Name Value Interpretation Reference Range Facil ity Vital Signs Date Time Vital Sign Value Performing Clinician Faci lity 02-28-2017 12:50-0500 BMI (Body Mass Index) 30.02 kg/m2 Иван Rivera PA-C [facility] Work Phone: 02-28-2017 12:50-0500 Body Temperature 98.2 [degF] Иван Rivera PA-C [facility] Work Phone: 02-28-2017 12:50-0500 BP Diastolic 84 mm[Hg] Иван Rivera PA-C [facility] Work Phone: 02-28-2017 12:50-0500 BP Systolic 122 mm[Hg] Иван Rivera PA-C [facility] Work Phone: 02-28-2017 12:50-0500 Height 165.1 cm Иван Rivera PA-C [facility] Work Phone: 02-28-2017 12:50-0500 Pulse (Heart Rate) 90 /min Иван Rivera PA-C [facility] Work Phone: 02-28-2017 12:50-0500 Respiratory Rate 13 /min Иван Rivera PA-C [facility] Work Phone: 02-28-2017 12:50-0500 Weight 81.83 kg Иван Rivera PA-C [facility] Work Phone: Encounters Encounter Date Encounter Type Care Provider Facility Start: 04-01-2023 End: 04-06-[address] STACY MARTINS MD Facility:[facility] Start: 04-01-2023 End: 04-05-[address] STACY MARTINS MD [facility] Start: 10-08-2014 End: 10-08-2014 Telephone encounter Deidre Ruelas MD Work Phone: [facility] Procedures Date Procedure Procedure Detail Performing Clinician Start: 12-24-2014 Mammography Deidre deleon MD Work Phone: Start: 10-06-1999 Colonoscopy Deidre deleon MD Work Phone: Abdominal hysterectomy DR SCAR MARTINS MD section DR STACY MARTINS MD Cholecystectomy DR STACY GAUTHIER MD Entire ankle region (body structure) DR STACY MARTINS MD Plan of Treatment Date Care Activity Detail Author Start: 12-04-2020 Influenza vaccination INFLUENZ A (Season Ended) [facility] Start: 10-09-2019 LIPID SCREEN LIPID SCREEN [facility] Start: 10-08-2017 DIABETES SCREEN DIABETES SCREEN [facility] Start: 02-28-2017 End: 02-28-2017 Appointment [facility] Work Phone: Start: 12-25-2015 Mammography MAMMOGRAM [facility] Start: 2010 Screening for malign ant neoplasm of colon [facility] Start: 2010 SHINGRIX VACCINE (1 of 2) JACOBO GRIX VACCINE (1 of 2) [facility] Start: 1979 Urine microalbumin profile DTAP,TDAP,TD (1 - Tdap) [facility] Start: 1978 HEPATITIS C SCREENING HEPATITIS C SC REENING [facility] Start: 1978 HIV SCREENING HIV SCREENING [facility] Start: 1972 Adult depression screening assessment DEPRESSION SCREENING [facility] Payers Date Payer Category Payer Unknown [id number] 2013 Unknown MMO [employer] [id number] 2013-2018 PPO [id number] 1960 Unknown [id number] Social History Date Type Detail Facility Start: 10-08-2014 Tobacco smoking stat us NHIS Never smoker [facility] Start: 10-08-2014 Tobacco use and exposure Never used [facility] Start: 10-08-2014 Alcohol intake Current drinke r of alcohol (finding) [facility] Start: 10-08-2014 Alcohol Comment one gl of wine per w teller [facility] Start: 1960 Sex Assigned At Not on file [facility] Sex Assigned At Sex [facility] Note 10-08-2014 Telephone Encounter - Delma Esparza - 10/08/2014 3:57 PM EDT Note Date & Type Note Facility 10-08-2014 Miscellaneous Notes COMPOUNDED PRESCRIPTION disp 1 refill 1 Sig: TESTOSTERONE 1% MIXED IN 50/50 WHITE PETROL, APPLY TO VULVA SPARINGLY EVERY OTHER DAY. Leonel Cmapos documented in this encounter [facility] History of Past illness Narrative 10-08-2014 Note Date & Type Note Facility documented as of this encounter (statuses as of 08/01/2020) [facility] Evaluation + Plan note Note Date & Type Note Facility Evaluation + Plan note No data available for this section [facility] Discharge instructions Note Date & Type Note Facility Hospital Discharge instructions No data available for this section [facility] Progress note Note Date & Type Note Facility Progress note No data available for this section [facility] Advance Directives No Advanced Directives Records FoundDocuments on File Type Date Recorded 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 Expl anation Advance Directive(s) 02/14/2014 1:21 PM Summary Purpose Family History No Family History Records Found Additional Source Comments Source Comments (unrecognize d section and content) In the event this informatio n is protected by the Federal Confidentiality of Alcohol and Drug Abuse Patient Records regulations: The Federal rules restrict any use of the information to criminally investigate or prosecute any alcohol or drug abuse patient.[facility] Patient Care team informatio n (unrecognized section and content) Care Team Personnel Name: BRIDGET CUMMINGS MD Member Role: Primary Care Physician Address: Address: [address] [place] [address] [address] [place] [address] Care Team Related Persons Name: MARA PELAYO Address: [address] [place] [address] INFORMATION SOURCE (unrecogn ized section and content) FOR RECORDS PERTAINING TO PATIENTS WHO ARE OR HAVE BEEN ENROLLED IN A CHEMICAL DEPENDENCY/SUBSTANCEABUSE PROGRAM, SOME INFORMATION MAY BE OMITTED. This clinical summary was aggregated from multiple sources. Caution should be exercised in using it in the provision of clinical care. This summary normalizes information from multiple sources, and as a consequence, information in this document may materially change the coding, format and clinical context of patient data. In addition, data may be omitted in some cases. CLINICAL DECISIONS SHOULD BE BASED ON THE PRIMARY CLINICAL RECORDS. [facility]. provides no warranty or guarantee of the accuracy or completeness of information in this document.
[2023-04-16 12:38] LABS: Vitamin B12 523 pg/mL (211-911)
[2023-04-16 12:57] LABS: T4 Free Direct 0.86 ng/dL (0.76-1.46); Thyroid Stim Hormone (TSH) 1.71 uIU/mL (0.358-3.74)
== END | disposition home or self-care (01) ==
LOC: BIMLAB 11:15
PROVIDERS: PCP Internal Medicine; Referring Provider Internal Medicine; Visit Provider Internal Medicine
DX: G62.9 Polyneuropathy, unspecified (principal); R20.0 Anesthesia of skin; R20.2 Paresthesia of skin
CPT/HCPCS: 36415; 82607; 84439; 84443

== ENCOUNTER → 2023-05-10 | Outpatient (CLI) | payer OTHER, SELFPAY ==
[2023-05-10 12:01] LABS: Anion Gap 5 (5-15); BUN 18 mg/dL (7-18); BUN/Creat Ratio 23.5 RATIO (10-20); Chloride 104 mmol/L (98-107); Creatinine, Serum 0.76 mg/dL (0.55-1.02); EST Glomerular Filtration Rate 81 mL/min (>60); Est Glom Filt Rate - Afr Amer 98 mL/min (>60); Glucose 96 mg/dL (74-106); Potassium 3.7 mmol/L (3.5-5.1); Sodium Level 137 mmol/L (136-145)
== END | disposition home or self-care (01) ==
LOC: LAB 11:31
PROVIDERS: PCP Internal Medicine
DX: I10 Essential (primary) hypertension (principal); M76.72 Peroneal tendinitis, left leg; E78.00 Pure hypercholesterolemia, unspecified
CPT/HCPCS: 36415; 80048

== ENCOUNTER → 2023-05-11 | Outpatient (CLI) | payer OTHER, SELFPAY | END | disposition home or self-care (01) | LOC: PSN 11:51 | PROVIDERS: PCP Internal Medicine | DX: M76.72 Peroneal tendinitis, left leg (principal); I10 Essential (primary) hypertension; E78.00 Pure hypercholesterolemia, unspecified | CPT/HCPCS: 93005 ==

== ENCOUNTER → 2023-07-07 | Outpatient (CLI) | payer OTHER, SELFPAY ==
--- NOTE | 2023-07-07 10:18 | RAD_ITS ---
INDICATION: Lumbar radiculopathy EXAMINATION/TECHNIQUE: X-RAY - XR Spine Lumbar 2 or 3 Views COMPARISON: No relevant prior comparison study available FINDINGS: VERTEBRAE: Preserved vertebral body height. No fracture. No spondylolisthesis. Preservation of the normal lumbar lordosis. No significant facet arthropathy. DISCS: Mild narrowing of L3-L4 disc space. INCLUDED ABDOMEN: Atherosclerotic calcifications of the abdominal aorta. RAD/Lumbar Spine 2 or 3 Views IMPRESSION: Narrowing of L3-4 disc space. Electronically Signed: Gil Gay MD at 8:37 EDT ,
--- NOTE | 2023-07-07 10:41 | NEURO ---
NCS and/or EMG Patient Report Ordering Doctor: Ricki Miller DATE OF SERVICE: 07/07/23 Leidy presents for electrodiagnostic testing of the lower limbs. She reports a burning and tingling sensation at the plantar aspect of both feet. She has had multiple surgeries on each foot. Electrodiagnostic findings: Right peroneal motor nerve demonstrates normal distal latency and amplitude with a drop in amplitude across the fibular head. Conduction velocity is within normal limits, including across the fibular head. Left peroneal motor nerve demonstrates prolonged distal latency with reduced amplitude and reduced conduction velocity. Tibial motor response demonstrates 50% drop in amplitude on the right side compared to the left. Normal tibial motor distal latencies and conduction velocities are noted. Prolonged left peroneal F-wave. Borderline prolonged H-reflex bilaterally. Prolonged left sural latency is noted. Normal superficial peroneal and plantar responses. Needle EMG testing was performed in the lower limbs. The gastrocnemius bilaterally demonstrated motor units of increased amplitude and duration. All other muscles tested showed no evidence of denervation with normal motor unit action potentials. Electrodiagnostic assessment: This is an abnormal study. 1. Electrodiagnostic findings are suggestive of peripheral polyneuropathy, with motor and sensory nerve involvement. There is evidence of both axon loss and demyelination. 2. Electrodiagnostic evidence is noted for lumbosacral radiculopathy. Multi Select Codes Neurology Neurology Interp Codes: 65301-97 Musc test done w/n test comp (interp) (2) and 67355-47 Nrv cndj test 11-12 studies (interp)
[2023-07-07 10:52] LABS: Absolute Lymphocyte Count 1.34 X10^3/uL (0.83-4.51); Absolute Neutrophil Count 4.7 X10^3/uL (2.0-7.7); Basophil# 0.02 X10^3/uL; Basophil% 0.3 % (0-1); Eosinophil# 0.12 X10^3/uL; Eosinophils% 1.8 % (0-5); Hematocrit 38.1 % (37-47); Hemoglobin 13.1 g/dL (12.0-15.0); Lymphocyte # 1.34 X10^3/ul (0.83-4.51); Mean Corp Hgb Conc 34.4 g/dL (32-36); Mean Corpuscular Hgb 29.8 pg (27.0-32.0); Mean Corpuscular Volume 86.8 fL (81-99); Mean Platelet Vol. 8.5 fl (6.2-12.0); Monocyte# 0.46 X10^3/uL; Monocyte% 6.9 % (0-10); NRBC Flagged by Analyzer 0 % (0-5); Neutrophil # 4.74 X10^3/uL (2.7-7.7); Neutrophil % 70.7 % (47-70); Platelet Count 249 K/mm3 (150-450); RBC Distribution Width CV 12.3 % (11.6-14.6); RBC Distribution Width SD 38.9 fl (35.1-43.9); Red Blood Count 4.39 M/mm3 (4.2-5.4); White Blood Count 6.7 K/mm3 (4.4-11.0)
[2023-07-07 11:15] LABS: ALB/GLOB Ratio 1.3 RATIO (0.9-2.4); AST(SGOT) 17 U/L (15-37); Alanine Aminotransfer ALT/SGPT 19 U/L (13-56); Albumin, Serum 3.9 g/dL (3.2-5.0); Alkaline Phosphatase 66 U/L (45-117); Anion Gap 9 (5-15); BUN 14 mg/dL (7-18); BUN/Creat Ratio 15.9 RATIO (10-20); Calcium,Total 8.8 mg/dL (8.5-10.1); Chloride 106 mmol/L (98-107); Cholesterol 158 mg/dL (200); Creatinine, Serum 0.88 mg/dL (0.55-1.02); EST Glomerular Filtration Rate 69 mL/min (>60); Est Glom Filt Rate - Afr Amer 83 mL/min (>60); Globulin 3.1 g/dL (2.2-4.2); Glucose 93 mg/dL (74-106); High Density Lipoprotein 57 mg/dL; Potassium 3.6 mmol/L (3.5-5.1); Sodium Level 139 mmol/L (136-145); Triglycerides 180 mg/dL; Very Low Density Lipoprotein 36 mg/dL (5-40)
== END | disposition home or self-care (01) ==
PROVIDERS: PCP Internal Medicine; Referring Provider Internal Medicine; Visit Provider Internal Medicine
DX: M54.16 Radiculopathy, lumbar region (principal); R20.0 Anesthesia of skin; R20.2 Paresthesia of skin; E78.5 Hyperlipidemia, unspecified
CPT/HCPCS: 36415; 72100; 80053; 80061; 85025; 95886; 95912

== ENCOUNTER → 2023-07-09 | Outpatient (CLI) | payer OTHER, SELFPAY ==
[2023-07-09 15:54] LABS: Erythrocyte Sedimentation Rate 3 mm/hr (0-30)
[2023-07-09 16:15] LABS: CRP < 2.90 mg/L (0.0-3.0); Rheumatoid Factor < 10.0 IU/mL (<15)
[2023-07-12 09:07] LABS: ANTINUCLEAR ANTIBODIES DIRECT Negative (Negative)
== END | disposition home or self-care (01) ==
LOC: BIMLAB 14:44
PROVIDERS: PCP Internal Medicine; Referring Provider Internal Medicine; Visit Provider Internal Medicine
DX: G62.9 Polyneuropathy, unspecified (principal)
CPT/HCPCS: 36415; 85652; 86038; 86140; 86225; 86235; 86431

== ENCOUNTER → 2023-07-15 | Outpatient (CLI) | payer OTHER, SELFPAY ==
[2023-07-15 19:04] LABS: Hepatitis C Antibody Non-Reactive (Nonreactive); Vitamin B12 595 pg/mL (211-911)
[2023-07-15 19:28] LABS: Thyroid Stim Hormone (TSH) 1.13 uIU/mL (0.358-3.74)
[2023-07-21 18:07] LABS: Immunoglobulin A 142 mg/dL (87-352); Immunoglobulin G 783 mg/dL (586-1602); Immunoglobulin M 31 mg/dL (26-217); PROEL- A/G Ratio 1.5 (0.7-1.7); PROEL- Albumin 3.9 g/dL (2.9-4.4); PROEL- Alpha-1 Globulin 0.3 g/dL (0.0-0.4); PROEL- Alpha-2 Globulin 0.6 g/dL (0.4-1.0); PROEL- Gamma Globulin 0.6 g/dL (0.4-1.8); PROEL- Globulin, Total 2.6 g/dL (2.2-3.9); PROEL- TOTAL PROTEIN 6.5 g/dL (6.0-8.5); PROEL-M-Spike Not Observed g/dL (Not Observed)
[2023-07-21 20:08] LABS: Methylmalonic Acid Bld 278 nmol/L (0-378); RNP Ab <0.2 AI (0.0-0.9); Smith Ab <0.2 AI (0.0-0.9)
== END | disposition home or self-care (01) ==
LOC: MTLAB 14:43
PROVIDERS: PCP Internal Medicine; Referring Provider Psychiatry & Neurology Neurology; Visit Provider Psychiatry & Neurology Neurology
DX: G62.9 Polyneuropathy, unspecified (principal)
CPT/HCPCS: 36415; 82607; 82746; 82784; 83036; 83921; 84165; 84207; 84443; 86235; 86334; 86803

== ENCOUNTER → 2023-11-03 | Outpatient (CLI) | payer OTHER, SELFPAY ==
--- NOTE | 2023-11-03 13:03 | CT_ITS ---
STUDY: CT LEFT ANKLE WITHOUT CONTRAST REASON FOR EXAM: Female, 63 years old. R/O STRESS FX RADIATION DOSAGE (If Supplied By Facility): CTDIvol = ( 15.35 ) mGy, DLP = ( 358.82 ) mGycm TECHNIQUE: Thin section transaxial imaging of the left ankle was obtained, with sagittal and coronal reconstructed images. Individualized dose optimization techniques were used for this CT. COMPARISON: None. FINDINGS: Normal visualized distal tibia and fibula. Normal tibiotalar articulation and talar dome. Intact talus, calcaneus, navicular and cuboid tarsal bones. There is no acute stress fracture. There are 2 cannulated talocalcaneal fusion screws traversing through the subtalar joint. Normal talonavicular and calcaneocuboid articulations. Normal navicular-cuneiform, cuneiform tarsal bones and intercuneiform articulations. Normal tarsometatarsal articulations and visualized metatarsi. There is mild subcutaneous soft tissue edema along the lateral aspect of the ankle. CT/Extremity Lower without Contra IMPRESSION: 2 cannulated talocalcaneal fusion screws traversing through the subtalar joint. No acute stress fracture. Mild subcutaneous soft tissue edema along the lateral aspect of the ankle. Electronically Signed: Jonathan Stack MD at 14:13 EDT ,
== END | disposition home or self-care (01) ==
PROVIDERS: PCP Internal Medicine
DX: M76.72 Peroneal tendinitis, left leg (principal); T84.84XA Pain due to internal orthopedic prosthetic devices, implants and grafts, initial encounter; Y79.2 Prosthetic and other implants, materials and accessory orthopedic devices associated with adverse incidents
CPT/HCPCS: 73700

== ENCOUNTER → 2023-11-10 | Outpatient (CLI) | payer OTHER, SELFPAY ==
[2023-11-10 15:41] LABS: Anion Gap 3 (5-15); BUN 14 mg/dL (7-18); BUN/Creat Ratio 17.8 RATIO (10-20); Chloride 105 mmol/L (98-107); Creatinine, Serum 0.79 mg/dL (0.55-1.02); EST Glomerular Filtration Rate 78 mL/min (>60); Est Glom Filt Rate - Afr Amer 95 mL/min (>60); Glucose 85 mg/dL (74-106); Potassium 3.9 mmol/L (3.5-5.1); Sodium Level 139 mmol/L (136-145)
== END | disposition home or self-care (01) ==
LOC: MTLAB 10:57
PROVIDERS: PCP Internal Medicine; Referring Provider Orthopaedic Surgery; Visit Provider Orthopaedic Surgery
DX: I10 Essential (primary) hypertension (principal); E78.00 Pure hypercholesterolemia, unspecified; M96.0 Pseudarthrosis after fusion or arthrodesis
CPT/HCPCS: 36415; 80048

== ENCOUNTER → 2023-11-17 | Outpatient (CLI) | payer OTHER, SELFPAY ==
--- NOTE | 2023-11-17 11:56 | BI_ITS ---
MAMMOGRAPHY - BILATERAL SCREENING REASON FOR EXAM: Female, 63 years old. Routine annual screening examination. PERTINENT HISTORY: Grandmother with breast cancer. Remote right excisional breast biopsy. TECHNIQUE: Digital bilateral breast murphy (3D mammographic acquisition) in the CC and MLO projections. 2-D mediolateral oblique (MLO) and craniocaudad (CC) views of both breasts were obtained. CAD: Full Field Digital Mammography with Computer Added Detection was performed. COMPARISON: Comparison is made with prior study October 21, 2022 and May 18, 2017. FINDINGS: Breast Composition: The breasts are heterogeneously dense, which may obscure small masses. There are no dominant masses or suspicious calcifications. Stable small benign-appearing bilateral axillary lymph nodes. No other significant abnormalities are identified. There has been no significant change since the prior study. BI/SCRN MAMM (CAD)W/MURPHY BILAT IMPRESSION: Stable bilateral screening mammogram. Yearly follow-up mammogram recommended. (A) ASSESSMENT CATEGORY: BIRADS Category 2: Benign. A letter regarding these results will be sent to the patient by the facility within 30 days. Approximately 10% of breast cancers are not detected by mammography. A normal mammogram should not delay biopsy of a clinically suspicious abnormality. [id number] Electronically Signed: Joshua Arguello MD at 14:58 EDT ,
== END | disposition home or self-care (01) ==
LOC: OPBI 11:56
PROVIDERS: PCP Internal Medicine; Referring Provider Internal Medicine; Visit Provider Internal Medicine
DX: Z12.31 Encounter for screening mammogram for malignant neoplasm of breast (principal)
CPT/HCPCS: 77063; 77067

== ENCOUNTER → 2023-11-18 | Outpatient (CLI) | payer SELFPAY ==
--- NOTE | 2023-11-18 12:50 | CT_ITS ---
STUDY: CT CHEST WITHOUT CONTRAST REASON FOR EXAM: Female, 63 years old. Essential (primary) hypertension RADIATION DOSAGE (If Supplied By Facility): CTDIvol = ( 12.19 ) mGy, DLP = ( 170.66 ) mGycm TECHNIQUE: Transaxial imaging was performed without the administration of intravenous contrast material. Cardiac ovary examination. Individualized dose optimization techniques were used for this CT. COMPARISON: No relevant priors. FINDINGS: CHEST The lungs are normal. There is no demonstrated pleural abnormality. Mild coronary artery calcification. Normal mediastinum. Normal hilar regions. Normal unenhanced pulmonary arteries. There is atherosclerotic calcification of the aortic arch. Normal osseous structures. Small hiatal hernia. CT/Limited Chest CT Cardiac Only IMPRESSION: Mild degree of coronary artery calcification. Electronically Signed: Joshua Arguello MD at 14:04 EDT ,
--- NOTE | 2023-12-07 06:25 | CA.SCORE ---
Calcium Scoring Date of Study:: 11/18/23 Coronary Calcium Scoring: High-resolution Computed Tomographic imaging of the chest was performed on [11/18/2023], with particular attention paid to the coronary arteries. Images from the examination were analyzed for the presence and extent of coronary artery calcification , using coronary calcium quantification software. The patient tolerated the procedure well and there were no complications. The results of the coronary calcification analysis are provided below. Findings Coronary Artery Left Main (LM): 3.58 Left Anterior Descending (LAD): 0 Left Circumflex (LCX): 0 Right Coronary Artery (RCA): 2.19 Total Agatston Score: 5.77 Percentile Rankin-70 5th percentile Calcium Scoring Interpretation: Different methods to categorize the overall amount of coronary plaque. Overall amount CAC SIS Visual of coronary plaque P1 Mild -100 <2 1-2 vessels with mild amount of plaque P2 Moderate 101-300 3-4 1-2 vessels with moderate amount, 3 vessels with mild amount of plaque P3 Severe 301-999 5-7 3 vessels with moderate amount, 1 vessel with severe amount of plaque P4 Extensive >1000 >8 2-3 vessels with severe amount of plaque Calcium Score: Mild: 1-2 vessels w/mild amount of plaque Conclusion: Minimal atherosclerotic plaquing
== END | disposition home or self-care (01) ==
LOC: CT 12:48
PROVIDERS: PCP Internal Medicine; Referring Provider Internal Medicine; Visit Provider Internal Medicine
DX: R93.89 Abnormal findings on diagnostic imaging of other specified body structures (principal); I10 Essential (primary) hypertension; E78.5 Hyperlipidemia, unspecified
CPT/HCPCS: 75571; 76380

== ENCOUNTER → 2024-01-05 | Outpatient (CLI) | payer OTHER, SELFPAY ==
[2024-01-05 16:35] LABS: ALB/GLOB Ratio 1.2 RATIO (0.9-2.4); AST(SGOT) 19 U/L (15-37); Alanine Aminotransfer ALT/SGPT 30 U/L (13-56); Alkaline Phosphatase 97 U/L (45-117); Anion Gap 8 (5-15); BUN 17 mg/dL (7-18); BUN/Creat Ratio 19.4 RATIO (10-20); Calcium,Total 9.2 mg/dL (8.5-10.1); Chloride 106 mmol/L (98-107); Cholesterol 180 mg/dL (200); Creatinine, Serum 0.88 mg/dL (0.55-1.02); EST Glomerular Filtration Rate 69 mL/min (>60); Est Glom Filt Rate - Afr Amer 84 mL/min (>60); Globulin 3.3 g/dL (2.2-4.2); Glucose 94 mg/dL (74-106); High Density Lipoprotein 60 mg/dL; Potassium 3.6 mmol/L (3.5-5.1); Protein, Total 7.3 g/dL (6.4-8.2); Sodium Level 139 mmol/L (136-145); Triglycerides 217 mg/dL; Very Low Density Lipoprotein 43 mg/dL (5-40)
== END | disposition home or self-care (01) ==
LOC: LAB 14:31
PROVIDERS: PCP Internal Medicine; Referring Provider Internal Medicine; Visit Provider Internal Medicine
DX: E78.2 Mixed hyperlipidemia (principal)
CPT/HCPCS: 36415; 80053; 80061

== ENCOUNTER → 2024-04-19 | Outpatient (CLI) | payer BC, SELFPAY ==
[2024-04-19 15:54] LABS: Anion Gap 7 (5-15); BUN 13 mg/dL (7-18); BUN/Creat Ratio 16.1 RATIO (10-20); Calcium,Total 9.1 mg/dL (8.5-10.1); Chloride 105 mmol/L (98-107); Cholesterol 156 mg/dL (200); Creatinine, Serum 0.81 mg/dL (0.55-1.02); EST Glomerular Filtration Rate 76 mL/min (>60); Est Glom Filt Rate - Afr Amer 92 mL/min (>60); Glucose 82 mg/dL (74-106); High Density Lipoprotein 60 mg/dL; Potassium 3.9 mmol/L (3.5-5.1); Sodium Level 141 mmol/L (136-145); Triglycerides 173 mg/dL; Very Low Density Lipoprotein 35 mg/dL (5-40)
== END | disposition home or self-care (01) ==
LOC: BIMLAB 11:37
PROVIDERS: PCP Internal Medicine; Referring Provider Internal Medicine; Visit Provider Internal Medicine
DX: E78.2 Mixed hyperlipidemia (principal); I10 Essential (primary) hypertension

== ENCOUNTER → 2024-07-03 | Outpatient (CLI) | payer BC, SELFPAY ==
--- NOTE | 2024-07-03 08:26 | MRI_ITS ---
EXAM: MRI lumbar spine without IV contrast CLINICAL HISTORY: Pain, radiculopathy COMPARISON: 06/01/2024 TECHNIQUE: Multisequence multiplanar MR images of the lumbar spine were obtained without the administration of intravenous contrast. Imaging sequences were performed to best displaced suspected pathology. FINDINGS: Vertebral body heights are maintained. Negative for fracture or marrow replacement. Alignment is intact. Conus medullaris is within normal limits and terminates at L1. No paraspinal mass. L1-2: No focal disc abnormality, spinal stenosis or foraminal narrowing. L2-3: No focal disc abnormality, spinal stenosis or foraminal narrowing. L3-4: Minimal posterior disc bulge. No significant spinal stenosis or foraminal narrowing. L4-5: Posterior disc bulge. Mild/moderate bilateral facet arthrosis and ligamentum flavum hypertrophy. Borderline mild spinal stenosis. Mild bilateral foraminal narrowing. L5-S1: Posterior disc bulge. Mild bilateral facet arthrosis. No significant spinal stenosis or foraminal narrowing. MRI/Spine Lumbar (Routine) IMPRESSION: Acquired borderline mild spinal stenosis and mild bilateral foraminal narrowing at L4-5. No other significant spinal stenosis or foraminal narrowing. Reading Location: [facility]
== END | disposition home or self-care (01) ==
PROVIDERS: PCP Internal Medicine; Referring Provider Orthopaedic Surgery Orthopaedic Surgery of the Spine; Visit Provider Orthopaedic Surgery Orthopaedic Surgery of the Spine
DX: R52 Pain, unspecified (principal)
CPT/HCPCS: 72148

== ENCOUNTER → 2024-07-24 | Outpatient (CLI) | payer BC, SELFPAY ==
[2024-07-24 12:39] LABS: Absolute Lymphocyte Count 1.24 X10^3/uL (0.83-4.51); Absolute Neutrophil Count 4.3 X10^3/uL (2.0-7.7); Basophil# 0.03 X10^3/uL; Basophil% 0.5 % (0-1); Eosinophil# 0.11 X10^3/uL; Eosinophils% 1.8 % (0-5); Hematocrit 37.7 % (37-47); Hemoglobin 12.9 g/dL (12.0-15.0); Lymphocyte # 1.24 X10^3/ul (0.83-4.51); Lymphocyte % 20.2 % (19-41); Mean Corp Hgb Conc 34.2 g/dL (32-36); Mean Corpuscular Hgb 29.5 pg (27.0-32.0); Mean Corpuscular Volume 86.3 fL (81-99); Mean Platelet Vol. 9.1 fl (6.2-12.0); Monocyte# 0.47 X10^3/uL; Monocyte% 7.7 % (0-10); NRBC Flagged by Analyzer 0 % (0-5); Neutrophil # 4.26 X10^3/uL (2.7-7.7); Neutrophil % 69.5 % (47-70); Platelet Count 251 K/mm3 (150-450); RBC Distribution Width CV 12.8 % (11.6-14.6); RBC Distribution Width SD 39.9 fl (35.1-43.9); Red Blood Count 4.37 M/mm3 (4.2-5.4); White Blood Count 6.1 K/mm3 (4.4-11.0)
[2024-07-24 13:24] LABS: ALB/GLOB Ratio 1.6 RATIO (0.9-2.4); AST(SGOT) 22 U/L (<=31); Alanine Aminotransfer ALT/SGPT 21 U/L (<=34); Albumin, Serum 4.3 g/dL (3.4-4.8); Alkaline Phosphatase 94 U/L (35-104); Anion Gap 11 (5-15); BUN 15 mg/dL (4-19); BUN/Creat Ratio 21.3 RATIO (10-20); Calcium,Total 9.3 mg/dL (7.6-11.0); Carbon Dioxide 23.1 mmol/L (21.0-32.0); Chloride 105 mmol/L (98-108); Cholesterol 167 mg/dL (<=200); Creatinine, Serum 0.72 mg/dL (0.70-1.20); EST Glomerular Filtration Rate 93 (>60); Globulin 2.7 g/dL (2.2-4.2); Glucose 86 mg/dL (70-99); High Density Lipoprotein 45 mg/dL; Low Density Lipoprotein Calc. 61 mg/dL; Protein, Total 6.9 g/dL (5.9-8.4); Sodium Level 139 mmol/L (133-145); Total Bilirubin 0.37 mg/dL (0.00-1.30); Triglycerides 307 mg/dL; Very Low Density Lipoprotein 61 mg/dL (5-40); cholesterol:hdl ratio screen 3.72
== END | disposition home or self-care (01) ==
LOC: BIMLAB 11:14
PROVIDERS: PCP Internal Medicine; Referring Provider Internal Medicine; Visit Provider Internal Medicine
DX: I10 Essential (primary) hypertension (principal); E78.2 Mixed hyperlipidemia
CPT/HCPCS: 36415; 80053; 80061; 85025

== ENCOUNTER 2024-08-03 13:05 | Outpatient (RCR) | payer BC, SELFPAY ==
--- NOTE | 2024-08-03 15:33 | HP.PTEVAL_ITS ---
Patient's Visit Information Visit Information Visit Information: ADAM PELAYO is a 64 year old F referred to Physical Therapy by Dr. Keaton Ying MD with a diagnosis of Sacrolilitis. Date of Evaluation: 08/03/24 Physical Therapist: Ritesh Underwood DPT Visit Plan Frequency: 2x /Week Duration: 4 Weeks Plan: Start with modalities to reduce symptoms Progress core stability in neutral spine. in order to reduce stress to SI region. I would suggest that she follow up with ortho. Her prognosis with PT is lower due to not having much issues with her strength and ROM, but more with pain dominance. Subjective Subjective: Pt. is here today for her initial evaluation with diagnosis of R sacroiliitis. Pt. was to have surgery August 21, but was denied. Pt. reports having pain for ~1 year which has been progressively getting worse. Pt. has had 5 injury, very short term relief. Pt. has pain in SI region on R side, occasional distal symptoms. Very occasional tingling in gluteal region. Pt. has increased pain with prolonged sitting (this is the worst), prolonged standing, slightly bending. Decrease pain: nothing really helps. Pt. takes some OTC meds without relief. Pt. has increased pain with sleeping especially when pain is elevated from the day. Pt. reports having constant pain in her R SI region and sitting is awful. Pain R sacral region: Pain Intensity (Out of 10): 5 Pain Intensity Range: 3 and 8 Objective Objective: POSTURE: Pt. has fairly normal standing posture. Slightly anterior pelvic tilt. PALPATION: Pt. has increased pain with palpation of SI region on R side, L side causes R sided pain. Pt. has mild pain with spring testing throughout lumbar spine. NEURO: normal throughout. heel and toe raises without use of UEs. Pt. has normal DTR of LEs. ROM: Lumbar spine: flexion min loss increase NW, ext mod loss increase NW, SB increase NE to R side, SB L no effect, rotation min loss bilat increase NW. Pt. has no pain with hip ROM. MMT: Pt has good strength throughout BLEs. Fair core strength. GAIT: Pt. has increased pain with walking, worse during R stance phase. STAIRS: step to pattern loading LLE only. Pt. has high levels of pain during R stance phase, worse in SLS on R side. Pt. has decent lumbar ROM and strength, but limited with everything secondary to pain. If she was either weak or hypomobile I would have a better outlook on her prognosis. Balance/Special Test Scores Oswestry Low Back Score: 22 Goals Goal 1:: LTG: Pt. to be I with HEP. Goal Time Frame: 4-6 Weeks Goal 2:: STG: Pt. to be able to sit for at least 30 min without increase in symptoms. Goal Time Frame: 2 Weeks Goal 3:: LTG: Pt. to be able to walk without increase in R SI pain. Goal Time Frame: 4-6 Weeks Goal 4:: LTG: pt. to complete stairs without increase in SI joint pain. Goal Time Frame: 4-6 Weeks Rehabilitation Potential Physical Therapy Diagnosis: Pt. has signs and symptoms consistent with sacrolitis. pt. has high levels of pain with all movements, especially with trunk flexion and extension. She has difficulty walking and has high levels of pain with all sitting. At this point I think she would benefit for surgical consult. Rehabilitation Potential: Poor Anticipated Interventions Patient/Client Instruction: Educate patient on: Condition, Plan of Care, Risk Factors and Benefits of Fitness Program For the Purpose of:: To improve self management, To prevent re-injury, To improve ability to perform tasks related to life management and To improve tolerance to ADL's Therapeutic Exercise to Include: Strength training, Power training, Postural training, Passive ROM and Active ROM For the Purpose of:: To decrease pain, To decrease swelling/inflammation, To increase ROM, To improve nutrient delivery to tissue, To improve muscle performance and motor function and To improve ability to perform ADL's Text: Thank you for the opportunity to evaluate your patient. For Medicare and Medicare HMO plans, please review the plan of care and approve it. It will need to be FAXED BACK to us at [phone] for Medicare purposes. For Medicare only, by signing this I certify the plan of care. Please let me know if there are questions or concerns regarding this plan of care. Physician Signature: Date:
== END 2024-08-03 19:00 | disposition home or self-care (01) ==
LOC: PT 13:05
PROVIDERS: PCP Internal Medicine; Referring Provider Orthopaedic Surgery Orthopaedic Surgery of the Spine; Visit Provider Orthopaedic Surgery Orthopaedic Surgery of the Spine
DX: M46.1 Sacroiliitis, not elsewhere classified (principal); M51.362 Other intervertebral disc degeneration, lumbar region with discogenic back pain and lower extremity pain
CPT/HCPCS: 97161

== ENCOUNTER → 2024-08-16 | Outpatient (CLI) | payer BC, SELFPAY ==
--- NOTE | 2024-08-16 13:16 | CT_ITS ---
PROCEDURE: EXTREMITY LOWER WITHOUT CONTRA 08/16/2024 REASON FOR EXAM: PRIMARY OSTEOARTHRITIS, LEFT ANKLE AND FOOT TECHNIQUE: Axial CT images of the left ankle and foot obtained without intravenous contrast. Coronal and Sagittal reconstruction series were provided. One or more dose reduction techniques were used (e.g., Automated exposure control, adjustment of the mA and/or kV according to patient size, use of iterative reconstruction technique). RADIATION DOSE SUMMARY: CTDlvol: 15.35 mGy DLP: 442.03 mGycm COMPARISON: Prior study dated November 03, 2023. FINDINGS: Bones: Once again, 2 cannulated talocalcaneal fusion screws are seen traversing through the subtalar joint. There is evidence of fusion of the subtalar joint. Small cystic changes are seen in the region of the talus. Joints: Fusion of the subtalar joint. Soft Tissues: Minimal soft tissue swelling. CT/Extremity Lower without Contra IMPRESSION: Status post 2, cannulated talocalcaneal fusion screws through the subtalar join t. There is evidence of fusion. Reading Location: [id number]
== END | disposition home or self-care (01) ==
LOC: CT 13:16
PROVIDERS: PCP Internal Medicine; Referring Provider Orthopaedic Surgery; Visit Provider Orthopaedic Surgery
DX: M19.072 Primary osteoarthritis, left ankle and foot (principal); Q66.72 Congenital pes cavus, left foot
CPT/HCPCS: 73700

== ENCOUNTER 2024-08-21 05:29 | Day surgery (SDC) | payer BC, SELFPAY ==
[2024-08-07 10:09] VITALS: BMI 35.7
[2024-08-09 13:21] LABS: Hemoglobin A1c 5.4 % (<=5.6)
[2024-08-09 13:41] LABS: Hepatitis B Surface Antibody Nonreactive
[2024-08-09 13:50] LABS: HIV Nonreactive (Nonreactive); Hepatitis C Antibody Nonreactive (Nonreactive); Magnesium 2.1 mg/dL (1.5-2.2)
[2024-08-11 05:07] LABS: Hepatitis A AB, Total Negative (Negative)
[2024-08-21] VITALS (14 sets, daily range): BP systolic 106–163; BP diastolic 60–71; PULSE 64–74; RESP 16–20; TEMP 36.1–36.8; O2SAT 90–100; BMI 35.6
[2024-08-21] MEDS: Magnesium 1 GM over 15 mins IV (06:07)
[2024-08-21] MEDS: Acetaminophen 500 MG Tablet 1000 MG PO (06:14)
[2024-08-21] MEDS: Lactated Ringers 1,000 ML 15 ML IV (06:14)
--- NOTE | 2024-08-21 06:30 | RAD_ITS ---
EXAM: XR Right S-I Jts 3 CLINICAL INDICATION: RT SI JOINT FUSION TECHNIQUE: X-ray right s-i jts 3. COMPARISON: No relevant prior studies available. FINDINGS: Fluoroscopic guided spot images were used intraoperatively. Total images is 13. Total fluoroscopy time was 92.7 seconds. Total radiation dose was 99.96 mGy. RAD/S-I Jts 3 or More Views IMPRESSION: Fluoroscopic guidance used intraoperatively. Please refer to the operative not e for further details. Reading Location: [id number]
[2024-08-21 06:38] LABS: Bedside Glucose 105 mg/dL (74-106)
--- NOTE | 2024-08-21 07:14 | PCM.PRE.AN2 ---
ASA Classification* ASA Classification ASA Classification: 2 Assessment & Plan Anesthesia* Anesthesia Assessment Anesthesia Assessment: Discussed sedation and/or anesthesia options, risks, benefits, and alternatives with patient/parents/legal guardian/POA. Questions invited. The patient/parents/legal guardian/POA seems to understand and agrees to proceed with anesthesia plan. Reviewed the physical assessment, medical history, allergy history and patient home medications list prior to surgery/procedure/anesthetic and documented any changes. Performed airway and anesthesia risk assessments. Anesthesia Type Anesthesia Type: General Anesthesia Focused Assessment* Temperature: 97.0 F Pulse Rate: 66 Blood Pressure: 163/71 Respiratory Rate: 18 Pulse Ox: 99 Airway Assessment Mouth opens: >3 cm Mallampati Score: II Focused Labs Anesthesia Preop lab: CBC WBC 6.1 K/mm3 (4.4-11.0) 07/24/24 11:14 07/24/24 RBC 4.37 M/mm3 (4.2-5.4) 07/24/24 11:14 07/24/24 Hgb 12.9 g/dL (12.0-15.0) 07/24/24 11:14 07/24/24 Hct 37.7 % (37-47) 07/24/24 11:14 07/24/24 Plt Count 251 K/mm3 (150-450) 07/24/24 11:14 07/24/24 CHEMISTRY Potassium 4.0 mmol/L (3.3-5.1) 07/24/24 11:14 07/24/24 Sodium 139 mmol/L (133-145) 07/24/24 11:14 07/24/24 Magnesium 2.1 mg/dL (1.5-2.2) 08/09/24 10:44 08/09/24 BUN 15 mg/dL (4-19) 07/24/24 11:14 07/24/24 Creatinine 0.72 mg/dL (0.70-1.20) 07/24/24 11:14 07/24/24 Glucose 86 mg/dL (70-99) 07/24/24 11:14 07/24/24 POC Glucose 105 mg/dL (74-106) 08/21/24 06:05 08/21/24 TSH 1.13 uIU/mL (0.358-3.74) 07/15/23 14:44 07/15/23 COAG PT 13.0 SECONDS (11.7-14.9) 01/04/14 11:39 01/04/14 Pre-Assessment Diagnosis/Proposed Procedure Planned Operative Procedure(s): (R) Right Sacroiliac Joint Fusion, ERAS Anesthesia History 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 When Was Last Pacemaker Check QUESTION #4 FULL TEXT: You/Your Family Experience fever (hyperthermia) with Anesthesia Last Oral Intake Last Oral intake: Last Oral Intake NPO since 03:00 08/21/24 06:06 Meds taken in AM with sips of No 08/21/24 06:06 water? 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 Female Yes 08/07/24 10:09 HX of Motion Sickness No 08/07/24 10:09 HX of N/V After Surgery No 08/07/24 10:09 Non-Smoker Yes 08/07/24 10:09 Duration of Surgery greater Yes 08/07/24 10:09 than 60 minutes Number of Risk Factors 3 08/07/24 10:09 PONV Score Moderate Risk 08/07/24 10:09 Height & Weight Height & Weight: Anesthesia: Height & Weight Height 5 ft 5 in 08/21/24 06:06 Weight: 97 kg 08/21/24 06:06 Body Mass Index (BMI) 35.6 08/21/24 06:06 Respiratory Assessment Respiratory Assessment - fastener sewing machine operator: Respiratory Tract Infection Hx - 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 Has anyone observed you stop No 08/07/24 10:09 breathing during sleep? STOP Results Negative 08/07/24 10:09 QUESTION #5 FULL TEXT : Do you snore loudly (louder than talking or can be heard through closed doors)? 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 Specify any problems Hx of Preganancy in last 3 No 08/07/24 10:09 Months Nurse Filling Out Transfusion VCHRISTIN 08/07/24 10:09 & Questions: Date: 08/07/24 08/07/24 10:09 Time: 10:10 08/07/24 10:09 Patient unable to answer at this time (ie. confused, unrespo /Reproduction History /Reproductive History - fastener sewing machine operator: /Reproductive Hx- fastener sewing machine operator Hx Now No 08/07/24 10:09 Gestational Age (in weeks): EDC: Hx Hx Para Hx Section SAB No 08/07/24 10:09 Active Medications Active Medications: Current Medications Generic Name Dose Route Start Last Admin Trade Name Freq PRN Reason Stop Dose Admin Acetaminophen 1,000 mg 08/21/24 07:30 08/21/24 06:14 Acetaminophen 500 Mg Tablet PO 08/21/24 07:31 1,000 mg PREOP ONE Administration Cefazolin Sodium 2 gm/ Sodium 110 mls @ 150 mls/hr 08/21/24 07:30 Chloride IV 08/21/24 08:13 INTRAOP ONE Tranexamic Acid 1,000 mg/ 110 mls @ 660 mls/hr 08/21/24 07:30 Sodium Chloride IV 08/21/24 07:39 INTRAOP ONE Tranexamic Acid 1,000 mg/ 110 mls @ 660 mls/hr 08/21/24 07:30 Sodium Chloride IV 08/21/24 07:39 INTRAOP ONE Magnesium Sulfate 1 gm/ 102 mls @ 408 mls/hr 08/21/24 07:30 08/21/24 06:07 Dextrose IV 08/21/24 07:44 408 mls/hr INTRAOP ONE Administration Lactated Ringer's 1,000 mls @ 15 mls/hr 08/21/24 05:45 08/21/24 06:14 IV 15 mls/hr .Q48H GISELLA Administration Insulin Human Lispro 1 - 6 unit 08/21/24 07:30 Insulin Lispro 100 Unit/Ml Insuln.Pen SC 08/21/24 18:00 Q4H PRN PRN BG>/= 180, SEE PROTOCOL Protocol PFSH Medical History Wears glasses Post-menopausal Cancer Anxiety Back pain History of pain when walking Preoperative evaluation to rule out surgical contraindication Ear pain, right Blister (nonthermal), left foot, initial encounter Heat intolerance Skin cancer Abnormal finding on imaging Lumbar radiculopathy Neuropathy Numbness and tingling of both feet Anxiety and depression Motion sickness Sinusitis Dermatitis Hyperlipidemia Encounter to establish care Colon cancer screening Vitamin D deficiency Preventative health care Gallstone Seasonal allergies Non-smoker History of stress test Mass of lip Vision problems GERD (gastroesophageal reflux disease) Pneumonia Kidney stones IBS (irritable bowel syndrome) Hormone deficiency High triglycerides High cholesterol Gall stones Carpal tunnel syndrome Cataracts, bilateral Breast lump in female History of blood transfusion UTI (urinary tract infection) Arthritis Severe headache Hay fever HTN (hypertension) Home Medications ?Medication ?Instructions ?Recorded ?Last Taken ?Type cranberry fruit 400 mg capsule 400 mg PO DAILY 07/26/18 Unknown History ascorbic acid (vitamin C) 1,000 mg 1 g PO DAILY 02/18/21 Unknown History tablet (Vitamin C) biotin 10,000 mcg capsule 10,000 mcg PO DAILY 02/18/21 Unknown History echinacea 450 mg capsule 900 mg PO DAILY 02/18/21 Unknown History zinc 50 mg tablet 50 mg PO DAILY 02/18/21 Unknown History cholecalciferol (vitamin D3) 50 50 mcg PO DAILY #90 caps 04/09/22 Unknown Rx mcg (2,000 unit) capsule (Vitamin D3) multivitamin with iron (Hair 1 tab PO DAILY 04/09/22 Unknown History Vitamins tablet) valacyclovir 1 gram tablet 1,000 mg PO BID PRN cold sores #30 09/07/23 Unknown Rx tabs atenolol 50 mg tablet 50 mg PO QHS #90 TABLETS 05/27/24 Unknown Rx buspirone 5 mg tablet 5 mg PO BID #180 tabs 05/27/24 Unknown Rx estradiol 0.1 mg/24 hr weekly See Rx Instructions .Route 05/27/24 Unknown Rx transdermal patch .COMPLEX #12 ea losartan 100 1 tab PO DAILY #90 TABLETS 05/27/24 Unknown Rx mg-hydrochlorothiazide 12.5 mg tablet pantoprazole 40 mg tablet,delayed 40 mg PO DAILY #90 tabs 05/27/24 Unknown Rx release gabapentin 300 mg capsule 300 mg PO DAILY Neuropathy 07/24/24 Unknown History gabapentin 600 mg tablet 1,200 mg PO QHS Neuropathy 07/24/24 Unknown History fenofibrate 160 mg tablet 160 mg PO DAILY 3 months #90 tabs 08/04/24 Unknown Rx collagen,hydrolysate 500 mg-biotin 1 cap PO DAILY 08/07/24 Unknown History 800 mcg-ascorbic acid 50 mg capsule (Collagen 1500 Plus C) diphenhydramine 25 1 tab PO QHS 08/07/24 Unknown History mg-acetaminophen 500 mg tablet (Acetaminophen PM) rosuvastatin 40 mg tablet 40 mg PO QHS 08/07/24 Unknown History vitamin A 3,000 mcg (10,000 unit) 10,000 unit PO DAILY 08/07/24 Unknown History capsule Allergy/AdvReac Type Severity Reaction Status Date / Time Sulfa (Sulfonamide Allergy Rash Verified 08/21/24 05:50 Antibiotics) zolpidem (From Ambien) AdvReac Severe Opposite Verified 08/21/24 05:50 effects from the medication Family History Grandmother Angina at rest Breast cancer Heart disease CVA (cerebral vascular accident) Thyroid disorder Father Depression Diabetes Hypertension High cholesterol CVA (cerebral vascular accident) Suicide attempt Mother Heart disease Seizures Arthritis Surgical History Hx of surgical procedure History of ankle surgery Hx of surgical procedure Hx laparoscopic cholecystectomy H/O tubal ligation History of breast biopsy History of cataract extraction History of bunionectomy History of hysterectomy Hx of cholecystectomy Trigger finger History of carpal tunnel release History of History of ankle surgery H/O resection of liver History of rotator cuff surgery History of fundoplication Social History Smoking Status: Never smoker alcohol intake: never details: Social substance use type: does not use what type of physical activity do you participate in: none additional social history: Does Not Take Aspirin Does Take Ibuprofen As Needed Review of Systems (Anesthesia) ROS Narrative System reviewed and no additional complaints, except as documented.
--- NOTE | 2024-08-21 07:17 | PCM.HP.BLA ---
History and Physical MR#: [id number] Acct: [id number] Name: ADAM PELAYO Rep #: [id number] : 1960 Provider: Dr. Keaton Ying MD Age/Sex: 64/F Location: [facility] Status: Signed Intake Vital Signs 06/01/2512:02 08/07/2509:08/15/2510:00 Height 5 ft 5 in 5 ft 5 in 5 ft 5 in Weight: 215 lb BMI 35.7 Intake Visit Reasons: lumbar Chief Complaint: FU Chronic Conditions/Pre - Surgical evalutaion Accompanied by: Self Is patient in pain?: Yes Pain scale (1-10): 4 Allergies Sulfa (Sulfonamide Antibiotics) Allergy (Verified 08/15/24 11:03) Rashzolpidem (From Ambien) Adverse Reaction (Severe, Verified 08/15/24 11:03) Opposite effects from the medication Medications ?Medication ?Instructions ?Recorded ?Confirmed ?Type cranberry fruit 400 mg capsule 400 mg PO DAILY 07/26/18 08/15/24 History ascorbic acid (vitamin C) 1,000 mg 1 g PO DAILY 02/18/21 08/15/24 History tablet (Vitamin C) biotin 10,000 mcg capsule 10,000 mcg PO DAILY 02/18/21 08/15/24 History echinacea 450 mg capsule 900 mg PO DAILY 02/18/21 08/15/24 History zinc 50 mg tablet 50 mg PO DAILY 02/18/21 08/15/24 History cholecalciferol (vitamin D3) 50 50 mcg PO DAILY #90 caps 04/09/22 08/15/24 Rx mcg (2,000 unit) capsule (Vitamin D3) multivitamin with iron (Hair 1 tab PO DAILY 04/09/22 08/15/24 History Vitamins tablet) valacyclovir 1 gram tablet 1,000 mg PO BID PRN cold sores #30 09/07/23 08/15/24 Rx tabs atenolol 50 mg tablet 50 mg PO QHS #90 TABLETS 05/27/24 08/15/24 Rx buspirone 5 mg tablet 5 mg PO BID #180 tabs 05/27/24 08/15/24 Rx estradiol 0.1 mg/24 hr weekly See Rx Instructions .Route 05/27/24 08/15/24 Rx transdermal patch .COMPLEX #12 ea losartan 100 1 tab PO DAILY #90 TABLETS 05/27/24 08/15/24 Rx mg-hydrochlorothiazide 12.5 mg tablet pantoprazole 40 mg tablet,delayed 40 mg PO DAILY #90 tabs 05/27/24 08/15/24 Rx release gabapentin 300 mg capsule 300 mg PO DAILY Neuropathy 07/24/24 08/15/24 History gabapentin 600 mg tablet 1,200 mg PO QHS Neuropathy 07/24/24 08/15/24 History fenofibrate 160 mg tablet 160 mg PO DAILY 3 months #90 tabs 08/04/24 08/15/24 Rx collagen,hydrolysate 500 mg-biotin 1 cap PO DAILY 08/07/24 08/15/24 History 800 mcg-ascorbic acid 50 mg capsule (Collagen 1500 Plus C) diphenhydramine 25 1 tab PO QHS 08/07/24 08/15/24 History mg-acetaminophen 500 mg tablet (Acetaminophen PM) rosuvastatin 40 mg tablet 40 mg PO QHS 08/07/24 08/15/24 History vitamin A 3,000 mcg (10,000 unit) 10,000 unit PO DAILY 08/07/24 08/15/24 History capsule Have you fallen in the past year?: No PFSH Medical History Wears glasses Post-menopausal Cancer Anxiety Back pain History of pain when walking Preoperative evaluation to rule out surgical contraindication Ear pain, right Blister (nonthermal), left foot, initial encounter Heat intolerance Skin cancer Abnormal finding on imaging Lumbar radiculopathy Neuropathy Numbness and tingling of both feet Anxiety and depression Motion sickness Sinusitis Dermatitis Hyperlipidemia Encounter to establish care Colon cancer screening Vitamin D deficiency Preventative health care Gallstone Seasonal allergies Non-smoker History of stress test Mass of lip Vision problems GERD (gastroesophageal reflux disease) Pneumonia Kidney stones IBS (irritable bowel syndrome) Hormone deficiency High triglycerides High cholesterol Gall stones Carpal tunnel syndrome Cataracts, bilateral Breast lump in female History of blood transfusion UTI (urinary tract infection) Arthritis Severe headache Hay fever HTN (hypertension) Surgical History Hx of surgical procedure History of ankle surgery Hx of surgical procedure Hx laparoscopic cholecystectomy H/O tubal ligation History of breast biopsy History of cataract extraction History of bunionectomy History of hysterectomy Hx of cholecystectomy Trigger finger History of carpal tunnel release History of History of ankle surgery H/O resection of liver History of rotator cuff surgery History of fundoplication Family History Grandmother Angina at rest Breast cancer Heart disease CVA (cerebral vascular accident) Thyroid disorderFather Depression Diabetes Hypertension High cholesterol CVA (cerebral vascular accident) Suicide attemptMother Heart disease Seizures Arthritis Social History Smoking Status: Never smoker alcohol intake: never details: Social substance use type: does not use what type of physical activity do you participate in: none additional social history: Does Not Take Aspirin Does Take Ibuprofen As Needed HPI lumbar Details: This documentation accurately reflects the service provided and the decisions made by me, Dr. Keaton Ying MD 08/15/24 1100. Part of today?s visit was documented by Kim Lofton MA, acting as scribe. ADAM PELAYO is a 64 year old F here today for a preop appointment. She continues to have right buttock pain with some referred pain down to the right hamstrings. 07/06/24: ADAM PELAYO is a 64 year old F here today for MRI review of her lumbar spine. She feels that her pain has gotten worse since her last visit. Patient states that she has a shooting pain that shoots down. 06/01/24: ADAM PELAYO is a 64 year old F here today for low back pain. Patient notes that she has had back pain for about 5 years. Patient denies any known injury. She notes that she has had several ankle surgeries and was casted for long periods of time, which irritated her back. Patient denies any prior back surgery. Patient complains of pain over her right sided low back. She states that she has some pain into her posterior thigh and into her mid low back. Patient denies any numbness or tingling. Although she has neuropathy in her feet, so she has numbness from that. Patient has seen Dr Miller and had multiple injections with her most recent injection in March. The injections used to help more but now she has about 3 weeks of relief. Patient denies any physical therapy. Patient had a lumbar spine xray in July. She denies any MRI. Patient had an EMG recently. Patient has been taking naproxen for pain. Ortho Exam General General: Yes no acute distress Neurologic: Yes alert and Yes oriented x3 Spine SPINE TESTING CERVICAL THORACIC LUMBAR Musculoskeletal Strength 0=absent - 5=normal Details: Examination the back shows tenderness of the right PSIS region. Otherwise no significant spinous process or midline tenderness. Range of motion of lower extremity shows 5 x 5 power in all muscles normal sensations in all dermatomes. Figure 4 test is positive. [place] test positive on the right. Coding Level of Care Code Off vis,est,level 4 Diagnoses Other intervertebral disc degeneration, lumbar region with discogenic back pain and lower extremity pain M51.362 Sacroiliitis M46.1 Time Spent (min) 35 Assessment and Plan Assessment and Plan (1) Other intervertebral disc degeneration, lumbar region with discogenic back pain and lower extremity pain: Status: Acute (2) Sacroiliitis: Status: Acute Plan Again reviewed previous imaging. MRI shows no significant stenosis, mild multilevel disc degeneration, severe L5-S1 bilateral facet arthrosis with facet fluid signal. Explained to her the imaging findings. Explained to her that some of her pain especially radicular symptoms into the lower extremity may be arising from the L5-S1 facet arthrosis with possible mild instability. The SI joint is still a problem for her and continues to cause significant pinpoint pain over the right PSIS, we can still proceed an SI joint fusion surgery as she has had good improvement with SI joint injections which were temporary. Spoke to patient about surgery. Discussed all risk benefits and alternatives. Discussed postoperative restrictions from the SI joint fusion surgery. Explained to her that this may not completely relieve the pain arising from the L5-S1 facet arthrosis and this may need additional treatment in the future. Discussed all risk benefits and alternatives of the right SI joint fusion procedure. The risks include but are not limited to infection, bleeding, hematoma formation, need for further surgery, injury to nerves and vessels, persistent pain, persistent difficulty walking, pain with walking, pseudoarthrosis, hardware failure, DVT, pulm embolism, pneumonia, atelectasis, cardiopulmonary event. Patient understands and agrees to proceed with surgery. Consent was signed.
[2024-08-21] MEDS: Cefazolin 2 GM in 0.9% Normal Saline (100mL Bag) 100 ML IV (07:40)
[2024-08-21] MEDS: TXA 1000mg in NS100 100ml (IVPB at Incision) 660 MG IV (07:55)
[2024-08-21] MEDS: Bupiv/Epi 0.25% 30 ML Vial (07:57)
[2024-08-21] MEDS: TXA 1000mg in NS100 100ml (IVPB at Closure) 660 MG IV (08:54)
--- NOTE | 2024-08-21 09:05 | OP.PCM_ITS ---
Procedures Musculoskeletal [id number]-29xxx: Other Procedure See Report Operative Report (Standard) Operative Information Date of Procedure: 08/21/24 Pre-Operative Diagnosis: Right sacroiliac joint arthritis Post-Operative Diagnosis: Same Surgery/Procedure Performed: Right sacroiliac joint fusion bobbin loose end finder: Yes Mobile Sales Assistant: Mar Aguilar Tasks completed by clinical assistant: Closing, Hemostasis: Electrocautery and Retracting Type of Anesthesia: General RN Documented Start/Stop Times: Operation Date: 08/21/24 07:30 Case Time Into Pre-Op 08/21/24 05:39 Out of Pre-Op 08/21/24 07:25 Anesthesia Start 08/21/24 07:29 Into Room 08/21/24 07:29 Procedure Start 08/21/24 08:00 Procedure Start Time: 08:00 Procedure Stop Time: 09:10 Select all DRAINS/GRAFTS/IMPLANTS that apply: Implanted device Implanted device details: Leeann SIros lateral SI joint fusion screws Estimated Blood Loss: 10 cc Specimen collected: No Description of surgery: Preoperative diagnosis: Right sacroiliac joint arthritis/dysfunction Postoperative diagnosis: Same Name of procedure: Right sacroiliac joint fusion, percutaneous, lateral approach CPT 83958 Attending Surgeon: Dr. Keaton Ying Estimated blood loss: 10 mL Anesthesia: General Implants: Leeann SI joint lateral percutaneous fusion system. Indications: Patient is a 64-year-old lady who presented with Right-sided low back pain and buttock pain. Imaging, clinical exam and diagnostic injections confirmed SI joint arthritis. All options of treatment were discussed which included continued nonoperative treatment measures like rest physical therapy, injections. After prolonged nonsurgical treatment, patient requested surgical intervention for SI joint fusion. All risks and benefits associated with the procedure were explained to the patient. The risks include but are not limited to infection, bleeding, injury to nerves and vessels, hematoma, persistent pain, numbness, nerve root injury or irritation, hardware failure, nonunion, difficulty ambulating, gait disturbances, adjacent joint degeneration in the hip or opposite SI joint or lower lumbar levels, stiffness, numbness around the incision, DVT, pulm embolism, pneumonia, atelectasis, cardiopulmonary event. Consent was signed. Procedure: The patient was identified in the preoperative holding suite using Unique patient identifiers. Skin was marked, consent was reviewed, and all questions were answered. The patient was then brought back to the operative room. A surgical timeout was performed to make sure correct procedure was being done on the correct patient and all operative room staff were on the same page. General endotracheal anesthesia was then given to the patient. The patient was then turned prone onto a flat Theron table over bolsters. All bony prominences were well-padded. The back was prepped and draped in usual fashion. Preoperative antibiotic was given. A final timeout was then again done just before starting the procedure. C-arm lateral view was utilized to identify the starting point on the right side. Incision was taken. Marcaine with epinephrine was injected into the presumed trajectory of the screws. Steinmann pin was advanced into the iliac bone monitoring the trajectory to go towards the S1 body posterior inferior to this alar line and anterior to the posterior vertebral body line. Inlet and outlet views were then taken at this time and pin was advanced and was confirmed to be posterior to the anterior sacral wall on the inlet view and superior to the S1 foramen on the outlet view. Once adequate positioning of the pin was noticed, a measuring device was then used to measure the length of the screw to be used. Dilators were used and a retractor cannula was then inserted and tapped into the bone. Drill was used as the bone was found to be sclerotic especially at the SI joint line. 9.5 mm drill bit was used. 50 mm x 11.5 mm implant was then inserted under x-ray control in the outlet and left views. The Steinmann pin was left in place and a guide was utilized to be about 2.8 cm inferior going into the S2 body confirmed on the lateral view. Another Steinmann pin was then introduced into the S2 body in the lateral view and confirmed the inlet and outlet views to be in line with the initial S1 screw on the inlet view and between the S1 and S2 foramen on the outlet view. This was similarly measured for length and drilled with 7.5 mm drill and screw size of 35 x 9.5 mm implant was then placed under x-ray control. The guide was then used to place a screw between the S1 and S2 screw about 14 mm inferior to the initial screw. This was directed to the S1 foramen and stop short of the lateral border of the S1 foramen on the outlet view and parallel and superimposed on the inlet view with the other screws. This was again drilled with 7.5 mm drill and a 40 x 9.5 mm implant was placed under x-ray control making sure not to enter the S1 foramen. All pins were removed and final C-arm pictures and inlet outlet and lateral views were taken. All screws passed the joint line as confirmed on contralateral outlet views. Thorough irrigation was given. Irrisept was kept in the wound for 1 minute and then rinsed. Closure was done in layers with 0 Vicryl for the deeper layers and 2-0 Vicryl for subcutaneous tissue, augmented with 4-0 Monocryl and Dermabond with 4 x 4 gauze and Tegaderm used as dressing. The patient was then turned supine onto a hospital bed. The patient was extubated and taken to PACU in stable condition. The patient tolerated the procedure well and no complications occurred. I was present for the entirety of the case and performed the surgery myself. Keyboard Operator Mar Aguilar PA-C. My physician nursing assistants teacher was a vital part of this case. They were important in appropriate retraction during the case, and protection of soft tissues during the procedure. Their intimate knowledge of the case and my steps aided in safe and expedient completion of the procedure as well as appropriate position of the patient during the surgery. They were also vital in assisting with closure under my direct supervision. Surgical Findings: See operative note Complications Complications: No
--- NOTE | 2024-08-21 09:24 | PCM.POST.ANE ---
Anesthesia: Postop Eval I Current Vital Signs Temperature: 97.5 F Pulse Rate: 71 Blood Pressure: 126/68 Respiratory Rate: 20 Pulse Ox: 95 Oxygen Delivery Method: Room Air Assessment Airway patent: Yes Spontaneous unlabored respirations: Yes Mental status: Awake and Calm nausea: No Vomiting: No Anesthesia Complication: No Fluid Hydration Crystalloid volume administer (ml): 900 Total IV fluid infused: 900 Progress Note Anesthesia document: Postop Eval 1 completed: Yes
--- NOTE | 2024-08-21 09:47 | POSTOPAN2_ITS ---
Anesthesia Postop Eval I Sum Postop Eval Completion status Anesthesia document: Postop Eval 1 completed: Yes Anesthesia Postop Eval I Summary Anesthesia Postop Eval I Summary: Anesthesia Postop Eval I: Assessment Summary Airway patent Yes 08/21/24 09:25 PROPERTY [email or web address] [email or web address] Spontaneous unlabored Yes 08/21/24 09:25 PROPERTY UTILIZATION [email or web address] respirations Mental status Awake,Calm 08/21/24 09:25 PROPERTY UTILIZATION [email or web address] nausea No 08/21/24 09:25 PROPERTY UTILIZATION [email or web address] Vomiting No 08/21/24 09:25 PROPERTY UTILIZATION [email or web address] Anesthesia Postop Eval I: Fluid Summary Crystalloid volume administer 900 08/21/24 09:25 PROPERTY [email or web address] [email or web address] (ml) Colloids volume administered ( ml) Blood Product volume administered (ml) Total IV fluid infused 900 08/21/24 09:25 PROPERTY UTILIZATION [email or web address] Anesthesia Postop Eval I: Summary Notes Anesthesia Complication No 08/21/24 09:25 PROPERTY [email or web address] [email or web address] Anesthesia Complication Comment: Post-operative progress note Anesthesia: Postop Eval II Evaluation Mental status: Awake Pain Level: 2 nausea: No Vomiting: No
--- NOTE | 2024-08-21 09:47 | PCM.POSTANE2 ---
Anesthesia Postop Eval I Sum Postop Eval Completion status Anesthesia document: Postop Eval 1 completed: Yes Anesthesia Postop Eval I Summary Anesthesia Postop Eval I Summary: Anesthesia Postop Eval I: Assessment Summary Airway patent Yes 08/21/24 09:25 [email or web address] Spontaneous unlabored Yes 08/21/24 09:25 [email or web address] [email or web address] respirations Mental status Awake,Calm 08/21/24 09:25 [email or web address] nausea No 08/21/24 09:25 [email or web address] Vomiting No 08/21/24 09:25 [email or web address] Anesthesia Postop Eval I: Fluid Summary Crystalloid volume administer 900 08/21/24 09:25 [email or web address] (ml) Colloids volume administered ( ml) Blood Product volume administered (ml) Total IV fluid infused 900 08/21/24 09:25 [email or web address] [email or web address] Anesthesia Postop Eval I: Summary Notes Anesthesia Complication No 08/21/24 09:25 [email or web address] Anesthesia Complication Comment: Post-operative progress note Anesthesia: Postop Eval II Evaluation Mental status: Awake Pain Level: 2 nausea: No Vomiting: No
[2024-08-21] MEDS: HYDROcodone Bitartrate/Apap 5/325 Tablet PO (11:36)
== END 2024-08-21 12:47 | disposition home or self-care (01) ==
LOC: SDC 05:30 → AC 05:30
PROVIDERS: PCP Internal Medicine; Referring Provider Orthopaedic Surgery Orthopaedic Surgery of the Spine; Visit Provider Orthopaedic Surgery Orthopaedic Surgery of the Spine
PROC: (CPT 27279; principal; 2024-08-21 07:00)
DX: M46.1 Sacroiliitis, not elsewhere classified (principal); M51.362 Other intervertebral disc degeneration, lumbar region with discogenic back pain and lower extremity pain; I10 Essential (primary) hypertension; F41.9 Anxiety disorder, unspecified; F32.A Depression, unspecified; E78.2 Mixed hyperlipidemia; E55.9 Vitamin D deficiency, unspecified; K21.9 Gastro-esophageal reflux disease without esophagitis; G62.9 Polyneuropathy, unspecified; Z79.899 Other long term (current) drug therapy
CPT/HCPCS: 27279; 01160; 36415; 72202; 76000; 82962; 83036; 83735; 86703; 86706; 86708; 86803; 86850; 86900; 86901; 87081; C1713; J2405; J3475

== ENCOUNTER → 2024-09-15 | Outpatient (CLI) | payer BC, SELFPAY ==
[2024-09-15 17:12] LABS: Anion Gap 15 (5-15); BUN 20 mg/dL (4-19); BUN/Creat Ratio 23.6 RATIO (10-20); Calcium,Total 9.8 mg/dL (7.6-11.0); Carbon Dioxide 22.5 mmol/L (21.0-32.0); Chloride 102 mmol/L (98-108); Creatinine, Serum 0.85 mg/dL (0.70-1.20); EST Glomerular Filtration Rate 76 (>60); Glucose 92 mg/dL (70-99); Potassium 3.9 mmol/L (3.3-5.1); Sodium Level 139 mmol/L (133-145)
== END | disposition home or self-care (01) ==
LOC: MTLAB 13:58
PROVIDERS: PCP Internal Medicine; Referring Provider Orthopaedic Surgery; Visit Provider Orthopaedic Surgery
DX: M19.072 Primary osteoarthritis, left ankle and foot (principal); I10 Essential (primary) hypertension
CPT/HCPCS: 36415; 80048

== ENCOUNTER → 2024-12-05 | Outpatient (CLI) | payer BC, SELFPAY ==
[2024-12-05 13:40] LABS: AST(SGOT) 21 U/L (<=31); Alanine Aminotransfer ALT/SGPT 14 U/L (<=34); Albumin, Serum 4.4 g/dL (3.4-4.8); Alkaline Phosphatase 85 U/L (35-104); Anion Gap 11 (5-15); BUN 17 mg/dL (4-19); BUN/Creat Ratio 20.4 RATIO (10-20); Calcium,Total 9.1 mg/dL (7.6-11.0); Carbon Dioxide 24.5 mmol/L (21.0-32.0); Chloride 104 mmol/L (98-108); Cholesterol 149 mg/dL (<=200); Globulin 2.4 g/dL (2.2-4.2); Glucose 93 mg/dL (70-99); Low Density Lipoprotein Calc. 49 mg/dL; Potassium 3.9 mmol/L (3.3-5.1); Triglycerides 237 mg/dL; Very Low Density Lipoprotein 47 mg/dL (5-40); cholesterol:hdl ratio screen 2.84
== END | disposition home or self-care (01) ==
LOC: LAB 12:00
PROVIDERS: PCP Internal Medicine; Referring Provider Internal Medicine; Visit Provider Internal Medicine
DX: E78.2 Mixed hyperlipidemia (principal)
CPT/HCPCS: 36415; 80053; 80061

== ENCOUNTER → 2024-12-28 | Outpatient (CLI) | payer BC, SELFPAY ==
--- NOTE | 2024-12-28 10:49 | BD_ITS ---
PROCEDURE: DEXA BONE DENSITY STUDY 12/28/2024 REASON FOR EXAM: POST MENOPAUSAL F, age 64 y/o . TECHNIQUE: Procedure Code: BDDBD Modality: DX Procedure: DEXA BONE DENSITY STUDY COMPARISON: DEXA examination dated 04/23/2022 FINDINGS: BMD and T-SCORES Lumbar spine: 1.042 g/cm2, T-score 0 Levels: L1 through L4 Change from prior: There has been a decrease in the bone mineral density of the lumbar spine by 2.7% since the prior study dated 04/23/2022. Left femoral neck: 0.887 g/cm2, T-score 0.3 Left total hip: 0.976 g/cm2, T-score 0.3 Change from prior: There has been a decrease in the bone mineral density of the left hip by 1% since the prior study dated 04/23/2022. Right femoral neck: 0.920 g/cm2, T-score 0.6 Right total hip: 0.989 g/cm2, T-score 0.4 Change from prior: There has been a significant increase in the bone mineral density of the right hip by 4% since the prior study dated 04/23/2022. The World Health Organization has defined the following categories based on bone density: Normal bone density: T-score equal to or greater than -1.0 Osteopenia: T-score between -1.0 and -2.5 Osteoporosis: T-score equal to or less than -2.5 FRAX (or Comparable) Fracture Risk Assessment: 10 Year Probability of Fracture: Major Osteoporotic Fracture: 9.4% Hip Fracture: 0.3% (Note: FRAX is not to be reported in setting of normal range bone density, osteoporosis on DEXA, known history of osteoporosis, prior osteoporotic hip or vertebral fracture, or for any patient undergoing pharmacological treatment for bone loss.) The National Osteoporosis Foundation (NOF) recommends pharmacological treatment for patients with a FRAX 10-year risk of 3% or higher for a hip fracture, or 20% or higher for a major osteoporotic fracture, to prevent osteoporosis and reduce fracture risk. The patient does not meet the pharmacological treatment recommendations for prevention of osteoporosis. BD/Dexa Bone Density Study IMPRESSION: NORMAL T-SCORES. Recommend follow-up as clinically warranted. Reading Location: [id number]
--- NOTE | 2024-12-28 12:00 | BI_ITS ---
EXAM: SCRN MAMM (CAD)W/MURPHY BILAT DATE: 12/28/2024 CLINICAL HISTORY: F, Age 64 y/o , BREAST CANCER SCREENING TECHNIQUE: Procedure Code: [id number] Modality: MG Procedure: SCRN MAMM (CAD)W/MURPHY BILAT COMPARISON: Prior exam(s) were compared FINDINGS: TISSUE DENSITY: The breasts are heterogeneously dense, which may obscure small masses. Bilateral Breast Mammographic Findings: No suspicious masses, calcifications or other abnormalities are identified. BI/SCRN MAMM (CAD)W/MURPHY BILAT IMPRESSION: No mammographic evidence of malignancy in either breast. OVERALL FINAL ASSESSMENT BI-RADS 1: NEGATIVE. RECOMMENDATION: Routine annual follow-up in 1 Year Additional Recommendation none A letter with findings and recommendations will be mailed to the patient. Reading Location: [id number]
== END | disposition home or self-care (01) ==
PROVIDERS: PCP Internal Medicine; Referring Provider Internal Medicine; Visit Provider Internal Medicine
DX: Z12.31 Encounter for screening mammogram for malignant neoplasm of breast (principal); Z78.0 Asymptomatic menopausal state; Z13.820 Encounter for screening for osteoporosis
CPT/HCPCS: 77063; 77067; 77080